=== PATIENT | male | born 1965 | race Caucasian/White ===

== ENCOUNTER → 2017-05-14 | Outpatient (CLI) | payer BC ==
--- NOTE | 2017-05-14 13:07 | EST ---
DATE OF SERVICE: 05/14/2017 TYPE OF REPORT: Regular Stress test, Jacob. INDICATION: Chest pain. BASELINE HEART RATE: 89 BASELINE BLOOD PRESSURE: 141/111 MAXIMUM HEART RATE: 174 MAXIMUM BLOOD PRESSURE: 174/75 85% MPHR: 142 100% MPHR: 167 METS: MAX STAGE REACHED: III TOTAL EXERCISE TIME: 9 minutes Baseline EKG revealed normal sinus rhythm without significant ST-T changes. Patient walked on standard Jacob protocol for a total duration of 9 minutes. Achieved a maximal heart rate of 174 beats per minute, well above 85% of predicted maximal. Developed fatigue, shortness of breath, but did not have any angina or erythema. There were no ST segment changes to indicate ischemia. FINAL IMPRESSION: 1. Fair exercise capacity. 2. Negative stress test by EKG criteria. 3. Patient had atypical chest pain 15 minutes after stopping the stress test. I believe this is insignificant. MTDD
--- NOTE | 2017-05-18 10:56 | ECHOF ---
Referral Reason:Atypical Chest Pain R07.89 MEASUREMENTS -------- HEIGHT: 182.9 cm WEIGHT: 115.7 kg BP: 120/60 RVIDd: 2.8 cm (< 3.3) IVSd: 1.3 cm (0.6 - 1.1) LVIDd: 4.0 cm (3.9 - 5.3) LVPWd: 1.3 cm (0.6 - 1.1) IVSs: 1.6 cm LVIDs: 3.2 cm LVPWs: 1.4 cm LA Diam: 3.4 cm (2.7 - 3.8) Ao Diam: 3.5 cm (2.0 - 3.7) AV Cusp: 2.0 cm (1.5 - 2.6) LA Diam: 4.1 cm (2.7 - 3.8) MV EXCURSION: 15.271 mm (> 18.000) MV EF SLOPE: 90 mm/s (70 - 150) EPSS: 0.2 cm MV E Abhi: 0.38 m/s MV DecT: 250 ms MV A Abhi: 0.55 m/s MV E/A Ratio: 0.68 RAP: 5.00 mmHg RVSP: 21.00 mmHg FINDINGS -------- Sinus rhythm. This was a technically adequate study. There is mild concentric left ventricular hypertrophy. Overall left ventricular systolic function is normal with, an EF between 55 - 60 %. The right ventricle is normal in size. The left atrial size is normal. The right atrial size is normal. The aortic valve is trileaflet, and appears structurally normal. No aortic stenosis or regurgitation. Mild mitral regurgitation is present. Mild tricuspid regurgitation present. There is no evidence of pulmonary hypertension. The right ventricular systolic pressure, as measured by Doppler, is 21.00mmHg. There is no pulmonic regurgitation present. The aortic root size is normal. There is no pericardial effusion. CONCLUSIONS -------- 1. There is mild concentric left ventricular hypertrophy. 2. Overall left ventricular systolic function is normal with, an EF between 55 - 60 %. 3. Mild mitral regurgitation is present. 4. Mild tricuspid regurgitation present. 5. There is no evidence of pulmonary hypertension. 6. The right ventricular systolic pressure, as measured by Doppler, is 21.00mmHg. 7. There is no pericardial effusion. [employer]: Gerda Aldridge RDCS
== END | disposition home or self-care (01) ==
LOC: RADNMMAIN 10:19
PROVIDERS: ATTEND Family Medicine
DX: R07.89 Other chest pain (principal)
CPT/HCPCS: 93017; 93306

== ENCOUNTER 2018-10-14 10:23 | Emergency (ER) | payer BC ==
[2018-10-14 10:30] VITALS: RESP 18
[2018-10-14] MEDS ORDERED: SODIUM CHLORIDE 0.9% 1,000 ML IV STA (11:31)
[2018-10-14] MEDS ORDERED: LORazepam 2 MG/ML INJ IV STA (11:31)
[2018-10-14 11:58] LABS: Partial Thromboplastin Time 25.2 sec (22.0-30.0); Prothrombin Time 10.4 sec (9.0-12.0)
--- NOTE | 2018-10-14 11:59 | ED ---
SOB HPI - General Chief Complaint: Shortness of Breath Stated Complaint: ZENY/near syncope Time Seen by Provider: 10/14/18 10:33 Source: patient, RN notes reviewed, old records reviewed Mode of arrival: ambulatory Limitations: no limitations - History of Present Illness Initial Comments: This is a 53-year-old male the ER for evaluation. Patient was essay for evaluation regarding chest pain shortness of breath, elevated heart rate elevated blood pressure. Patient states he is very stressed out very anxious, did receive some benefit cellulitis of the car on the front is also difficult to drive his car with shortness of breath and chest pain heaviness dizziness without headache. Patient does have A. fib with RVR, otherwise takes no significant medications has no recent medication changes denies drugs or alcohol. Patient states his symptoms seem to be waxing and waning currently MD Complaint: shortness of breath, anxiety -: minutes(s) Radiation: left arm Severity scale (1-10): 3 Quality: sharp Consistency: constant Improves With: nothing Worsens With: other (Thinking about stress) Context: anxiety Associated Symptoms: chest pain - Related Data Home Medications Medication Instructions Recorded Confirmed Sertraline [Zoloft] 50 mg PO DAILY 02/05/14 10/14/18 Alirocumab [Praluent Pen] 75 mg SQ Q14D 10/14/18 10/14/18 Apixaban [Eliquis] 5 mg PO BID 10/14/18 10/14/18 Flecainide [Tambocor] 50 mg PO BID 10/14/18 10/14/18 Levothyroxine Sodium [Synthroid] 125 mcg PO DAILY 10/14/18 10/14/18 Olmesartan Medoxomil 40 mg PO DAILY 10/14/18 10/14/18 Allergies Allergy/AdvReac Type Severity Reaction Status Date / Time No Known Allergies Allergy Verified 10/14/18 10:54 Review of Systems ROS Statement: Those systems with pertinent positive or pertinent negative responses have been documented in the HPI. ROS Other: All systems not noted in ROS Statement are negative. Past Medical History Past Medical History: Atrial Fibrillation, GERD/Reflux, Hyperlipidemia, Hypertension, Osteoarthritis (OA), Sleep Apnea/CPAP/BIPAP, Thyroid Disorder Additional Past Medical History / Comment(s): migraines, History of Any Multi-Drug Resistant Organisms: None Reported Past Surgical History: Adenoidectomy, Heart Catheterization, Hernia Repair, Orthopedic Surgery, Tonsillectomy Additional Past Surgical History / Comment(s): PERIANAL CYST REMOVED WITH COLONOSCOPY. pain clinic procedures, Past Anesthesia/Blood Transfusion Reactions: Motion Sickness, Postoperative Nausea & Vomiting (PONV) Past Psychological History: No Psychological Hx Reported Smoking Status: Never smoker Past Alcohol Use History: None Reported Past Drug Use History: None Reported - Past Family History Father Family Medical History: Coronary Artery Disease (CAD), Myocardial Infarction ([place] ) Additional Family Medical History / Comment(s): FATHER OF LEUKEMIA. Mother Family Medical History: Cancer Additional Family Medical History / Comment(s): thyroid and colon General Exam Limitations: no limitations General appearance: alert, in no apparent distress, anxious Head exam: Present: atraumatic, normocephalic, normal inspection Eye exam: Present: normal appearance, PERRL, EOMI. Absent: scleral icterus, conjunctival injection, periorbital swelling ENT exam: Present: normal exam, mucous membranes moist Neck exam: Present: normal inspection. Absent: tenderness, meningismus, lymphadenopathy Respiratory exam: Present: normal lung sounds bilaterally. Absent: respiratory distress, wheezes, rales, rhonchi, stridor Cardiovascular Exam: Present: regular rate, normal rhythm, normal heart sounds. Absent: systolic murmur, diastolic murmur, rubs, gallop, clicks GI/Abdominal exam: Present: soft, normal bowel sounds. Absent: distended, tenderness, guarding, rebound, rigid Extremities exam: Present: normal inspection, full ROM, normal capillary refill. Absent: tenderness, pedal edema, joint swelling, calf tenderness Back exam: Present: normal inspection Neurological exam: Present: alert, oriented X3, CN II-XII intact Psychiatric exam: Present: normal affect, normal mood Skin exam: Present: warm, dry, intact, normal color. 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 Symptoms appear to be improved x-rays negative labwork is normal, EKG normal. Patient can be discharged home - Lab Data Result diagrams: 10/14/18 10:57 10/14/18 10:57 Lab Results 10/14/18 10/14/18 10/14/18 Range/Units 10:57 10:57 10:57 WBC 5.6 (3.8-10.6) k/uL RBC 5.77 (4.30-5.90) m/uL Hgb 17.4 (13.0-17.5) gm/dL Hct 50.3 (39.0-53.0) % MCV 87.3 (80.0-100.0) fL MCH 30.2 (25.0-35.0) pg MCHC 34.5 (31.0-37.0) g/dL RDW 12.6 (11.5-15.5) % Plt Count 305 (150-450) k/uL Neutrophils % 65 % Lymphocytes % 24 % Monocytes % 6 % Eosinophils % 2 % Basophils % 1 % Neutrophils # 3.6 (1.3-7.7) k/uL Lymphocytes # 1.4 (1.0-4.8) k/uL Monocytes # 0.4 (0-1.0) k/uL Eosinophils # 0.1 (0-0.7) k/uL Basophils # 0.0 (0-0.2) k/uL PT (9.0-12.0) sec INR (<1.2) APTT (22.0-30.0) sec Sodium 139 (137-145) mmol/L Potassium 3.9 (3.5-5.1) mmol/L Chloride 106 (98-107) mmol/L Carbon Dioxide 22 (22-30) mmol/L Anion Gap 11 mmol/L BUN 23 H (9-20) mg/dL Creatinine 0.91 (0.66-1.25) mg/dL Est GFR (CKD-EPI)AfAm >90 (>60 ml/min/1.73 sqM) Est GFR (CKD-EPI)NonAf >90 (>60 ml/min/1.73 sqM) Glucose 108 H (74-99) mg/dL Calcium 9.9 (8.4-10.2) mg/dL Magnesium 2.0 (1.6-2.3) mg/dL Total Bilirubin 0.9 (0.2-1.3) mg/dL AST 33 (17-59) U/L ALT 54 (21-72) U/L Alkaline Phosphatase 64 (38-126) U/L Total Creatine Kinase 82 (55-170) U/L CK-MB (CK-2) 0.9 (0.0-2.4) ng/mL CK-MB (CK-2) Rel Index 1.1 Troponin I <0.012 (0.000-0.034) ng/mL NT-Pro-B Natriuret Pep pg/mL Total Protein 8.0 (6.3-8.2) g/dL Albumin 4.8 (3.5-5.0) g/dL 10/14/18 10/14/18 Range/Units 10:57 10:57 WBC (3.8-10.6) k/uL RBC (4.30-5.90) m/uL Hgb (13.0-17.5) gm/dL Hct (39.0-53.0) % MCV (80.0-100.0) fL MCH (25.0-35.0) pg MCHC (31.0-37.0) g/dL RDW (11.5-15.5) % Plt Count (150-450) k/uL Neutrophils % % Lymphocytes % % Monocytes % % Eosinophils % % Basophils % % Neutrophils # (1.3-7.7) k/uL Lymphocytes # (1.0-4.8) k/uL Monocytes # (0-1.0) k/uL Eosinophils # (0-0.7) k/uL Basophils # (0-0.2) k/uL PT 10.4 (9.0-12.0) sec INR 1.0 (<1.2) APTT 25.2 (22.0-30.0) sec Sodium (137-145) mmol/L Potassium (3.5-5.1) mmol/L Chloride (98-107) mmol/L Carbon Dioxide (22-30) mmol/L Anion Gap mmol/L BUN (9-20) mg/dL Creatinine (0.66-1.25) mg/dL Est GFR (CKD-EPI)AfAm (>60 ml/min/1.73 sqM) Est GFR (CKD-EPI)NonAf (>60 ml/min/1.73 sqM) Glucose (74-99) mg/dL Calcium (8.4-10.2) mg/dL Magnesium (1.6-2.3) mg/dL Total Bilirubin (0.2-1.3) mg/dL AST (17-59) U/L ALT (21-72) U/L Alkaline Phosphatase (38-126) U/L Total Creatine Kinase (55-170) U/L CK-MB (CK-2) (0.0-2.4) ng/mL CK-MB (CK-2) Rel Index Troponin I (0.000-0.034) ng/mL NT-Pro-B Natriuret Pep <11 pg/mL Total Protein (6.3-8.2) g/dL Albumin (3.5-5.0) g/dL - EKG Data -: EKG Interpreted by Me (EKG shows normal sinus rhythm at 77, UT 184, QRS 94, QTC 434) - Radiology Data Radiology results: report reviewed (Chest x-rays negative for acute disease), image reviewed Disposition Clinical Impression: Anxiety, Near syncope Disposition: HOME SELF-CARE Condition: Good Instructions: Anxiety (ED), Near Syncope (ED) Is patient prescribed a controlled substance at d/c from ED?: No Referrals: Rohit Norwood DO [Primary Care Provider] - 1-2 days
[2018-10-14 12:05] LABS: Basophils % (A) 1 %; Eosinophils # (A) 0.1 k/uL (0-0.7); Eosinophils % (A) 2 %; HCT 50.3 % (39.0-53.0); HGB 17.4 gm/dL (13.0-17.5); Lymphocytes # (A) 1.4 k/uL (1.0-4.8); Lymphocytes % (A) 24 %; MCH 30.2 pg (25.0-35.0); MCHC 34.5 g/dL (31.0-37.0); MCV 87.3 fL (80.0-100.0); Mean Platelet Volume 6.7; Monocytes # (A) 0.4 k/uL (0-1.0); Monocytes % (A) 6 %; Neutrophils # (A) 3.6 k/uL (1.3-7.7); Neutrophils % (A) 65 %; Platelet Count 305 k/uL (150-450); RBC 5.77 m/uL (4.30-5.90); RDW 12.6 % (11.5-15.5); WBC 5.6 k/uL (3.8-10.6)
[2018-10-14 12:07] LABS: ALT 54 U/L (21-72); AST 33 U/L (17-59); Albumin 4.8 g/dL (3.5-5.0); Alkaline Phosphatase 64 U/L (38-126); Anion Gap 11 mmol/L; Blood Urea Nitrogen 23 mg/dL (9-20); Calcium 9.9 mg/dL (8.4-10.2); Carbon Dioxide 22 mmol/L (22-30); Chloride 106 mmol/L (98-107); Glucose 108 mg/dL (74-99); Potassium 3.9 mmol/L (3.5-5.1); Sodium 139 mmol/L (137-145); Total Bilirubin 0.9 mg/dL (0.2-1.3)
[2018-10-14 12:11] LABS: Creatine Kinase 82 U/L (55-170)
[2018-10-14 12:23] LABS: Creatine Kinase MB 0.9 ng/mL (0.0-2.4); Troponin I <0.012 ng/mL (0.000-0.034)
--- NOTE | 2018-10-14 12:29 | XR ---
EXAMINATION TYPE: XR chest 2V DATE OF EXAM: 10/14/2018 HISTORY: Shortness of breath. COMPARISON: 06/12/2013 TECHNIQUE: Single view of the chest is submitted. FINDINGS: Demonstrated are scattered senescent parenchymal change. There is no evidence for focal infiltrate. The heart is stable. Hilar and mediastinal structures are within normal limits. Degenerative changes are seen of the dorsal spine. IMPRESSION: 1. Chronic changes without evidence for acute pulmonary disease.
[2018-10-14 13:05] VITALS: PULSE 77
[2018-10-14 13:50] VITALS: BP 139/93; TEMP 98.6
== END 2018-10-14 13:50 | disposition home or self-care (01) ==
LOC: EC 10:23
DX: R55 Syncope and collapse (principal); F41.9 Anxiety disorder, unspecified; R06.02 Shortness of breath; R07.89 Other chest pain; R42 Dizziness and giddiness; I48.91 Unspecified atrial fibrillation; E78.5 Hyperlipidemia, unspecified; I10 Essential (primary) hypertension; M19.90 Unspecified osteoarthritis, unspecified site; E07.9 Disorder of thyroid, unspecified; G47.30 Sleep apnea, unspecified; Z99.89 Dependence on other enabling machines and devices; Z79.01 Long term (current) use of anticoagulants; Z79.899 Other long term (current) drug therapy; Z95.818 Presence of other cardiac implants and grafts; Z82.49 Family history of ischemic heart disease and other diseases of the circulatory system
CPT/HCPCS: 36415; 93005; 83880; 80053; 82550; 82553; 83735; 84484; 85025; 85610; 85730; 71046; 99285; 96374; 96361 ×2; J2060

== ENCOUNTER 2020-04-10 08:44 | Day surgery (SDC) | payer BC ==
[2020-04-08 15:08] VITALS: BMI 33.6
[~2020-04-10 08:44] MED LIST: LACTATED RINGERS 1,000 ML IV SCH; LIDOCAINE 1% (10MG/ML) FOR IV START INTRADERMA PRN
[2020-04-10] MEDS ORDERED: ONDANSETRON 4 MG/2 ML VIAL ONE (08:57)
[2020-04-10 09:04] VITALS: RESP 16; TEMP 97.6
[2020-04-10] MEDS ORDERED: PROPOFOL 10 MG/ML 20 ML VIAL IV ONE (09:36)
--- NOTE | 2020-04-10 09:49 | P.PCN ---
Date of Procedure: 04/10/20 Procedure(s) Performed: BRIEF HISTORY: Patient is a 54-year-old pleasant male scheduled for an elective colonoscopy as a part of screening for colorectal neoplasia. Mother was diagnosed with colon cancer at age 60. OCEDURE PERFORMED: Colonoscopy. PREOPERATIVE DIAGNOSIS: Screening for colon cancer/family history of colon cancer. IV sedation per Anesthesia. PROCEDURE: After informed consent was obtained, the patient, was brought into the endoscopy unit. IV sedation was administered by Anesthesia under continuous monitoring. Digital rectal examination was normal. Initially the Olympus CF-160 flexible video colonoscope was then inserted in the rectum, gradually advanced into the cecum without any difficulty. Careful examination was performed as the scope was gradually being withdrawn. Ileocecal valve and the appendiceal orifice were visualized and appeared normal. Prep was excellent. Mucosa of the cecum, ascending colon, transverse colon, descending colon, sigmoid colon, and rectum appeared normal. Retroflexion was performed in the rectum and no lesions were seen. The patient tolerated the procedure well. IMPRESSION: Normal-appearing colon from rectum to cecum no evidence of colorectal neoplasia . RECOMMENDATIONS: Findings of this examination were discussed with the patient as well as a family. He was advised to have a repeat screening colonoscopy in 5 years.
[2020-04-10 09:56] VITALS: PULSE 69
[2020-04-10 10:09] VITALS: BP 115/70
== END 2020-04-10 10:22 | disposition home or self-care (01) ==
LOC: ORWHC2ENDO 08:44
PROVIDERS: ATTEND Internal Medicine Gastroenterology
DX: Z12.11 Encounter for screening for malignant neoplasm of colon (principal); Z80.0 Family history of malignant neoplasm of digestive organs; I10 Essential (primary) hypertension; I48.91 Unspecified atrial fibrillation; E78.5 Hyperlipidemia, unspecified; G47.33 Obstructive sleep apnea (adult) (pediatric); E07.9 Disorder of thyroid, unspecified; K21.9 Gastro-esophageal reflux disease without esophagitis; Z79.890 Hormone replacement therapy; Z79.899 Other long term (current) drug therapy; Z79.01 Long term (current) use of anticoagulants; Z98.890 Other specified postprocedural states; Z90.89 Acquired absence of other organs
CPT/HCPCS: J2405; J2704; G0105

== ENCOUNTER → 2020-04-15 | Outpatient (CLI) | payer BC ==
[2020-04-15 08:07] LABS: HCT 46.1 % (39.0-53.0); HGB 15.7 gm/dL (13.0-17.5); MCH 30.4 pg (25.0-35.0); MCHC 34.1 g/dL (31.0-37.0); MCV 89.2 fL (80.0-100.0); Mean Platelet Volume 6.8; Platelet Count 292 k/uL (150-450); RBC 5.17 m/uL (4.30-5.90); RDW 12.4 % (11.5-15.5); WBC 5.3 k/uL (3.8-10.6)
[2020-04-15 16:50] LABS: African American GFR (CKD) 97.1 (60.0-200.0); Anion Gap 7.1 mmol/L (4.00-12.00); Carbon Dioxide 27.9 mmol/L (21.6-31.8); Non-African American GFR(CKD) 83.8 (60.0-200.0); Potassium 4.4 mmol/L (3.5-5.5)
== END | disposition home or self-care (01) ==
LOC: LABWHC1 07:32
PROVIDERS: ATTEND Internal Medicine Interventional Cardiology
DX: Z01.818 Encounter for other preprocedural examination (principal); R07.9 Chest pain, unspecified
CPT/HCPCS: 36415; 80051; 82565; 84520; 85027

== ENCOUNTER → 2020-12-27 | Outpatient (CLI) | payer BC ==
--- NOTE | 2020-12-27 11:01 | CT ---
EXAMINATION TYPE: CT soft tissue neck w con DATE OF EXAM: 12/27/2020 COMPARISON: None HISTORY: base of tongue lesions CT DLP: 769.5 mGycm CONTRAST: Patient injected with 100 mL of Isovue 300. TECHNIQUE: Axial images at 3 mm thick sections. Reconstructed images in the coronal plane and sagitt al plane are reviewed. FINDINGS: Limited CT sections are obtained the lung apices. The lung apices appear clear. CT neck: The torus tubarius and fossa of Rosenmuller are normal. Marshmallow Maker spaces are normal. Para nasal sinuses and mastoid air cells are clear. Parotid glands appear normal and symmetrical. Submandibular glands, are normal. Parapharyngeal spac es are normal. No suspicious adenopathy is evident. The hypopharynx appears within normal limits. Vallecula appears clear. Epiglottis is unremarkable. Vocal cord level appear symmetrical. Thyroid as visualized is normal. Spondylosis is within the thoracic spine. Prevertebral space is normal. Mild degenerative disc change s present C5-6. Sella is unremarkable. IMPRESSIONS: 1. 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 2. No suspicious changes to suggest metastatic disease.
== END | disposition home or self-care (01) ==
LOC: RADCTMAIN 09:18
PROVIDERS: ATTEND Otolaryngology
DX: C01 Malignant neoplasm of base of tongue (principal)
CPT/HCPCS: 70491; Q9967

== ENCOUNTER → 2022-02-02 | Outpatient (CLI) | payer BC ==
--- NOTE | 2022-02-02 09:37 | MR ---
EXAMINATION TYPE: MR lumbar wo con DATE OF EXAM: 02/02/2022 COMPARISON: NONE HISTORY: Cervical and lumbar radiculopathy, pain and discomfort TECHNIQUE: T1 and T2 axial and sagittal images of the lumbar spine are submitted. FINDINGS: There is no abnormal signal seen within the visualized spinal cord or paraspinal soft tissu es. Bilateral simple renal cyst. At L1-2 there is no disc herniation or canal stenosis. No foraminal encroachment. At L2-3 there is no disc herniation or canal stenosis. No foraminal encroachment. At L3-4 there is no disc herniation or canal stenosis. Mild hypertrophy of the facet joints. There is circumferential disc bulging. Mild bilateral foraminal encroachment. At L4-5 there is degenerative disc disease with broad-based disc bulging and facet arthropathy. Mild bilateral foraminal encroachment. Vertebral body hemangioma of L4. Borderline canal stenosis. At L5-S1 there is degenerative disc disease with facet arthropathy. Broad-based disc bulging. Mild le ft and moderate right foraminal encroachment secondary to greater hypertrophic changes and disc bulgi ng laterally to the right. IMPRESSION: 1. Multilevel degenerative disc disease with disc bulging L4-5 and facet arthropathy result in border line canal stenosis and mild bilateral foraminal encroachment. 2. Degenerative disc disease with disc bulging greater laterally to the right L5-S1 resulting in mild left and moderate right foraminal encroachment. EXAMINATION TYPE: MR cervical wo con DATE OF EXAM: 02/02/2022 COMPARISON: NONE HISTORY: Cervical and lumbar radiculopathy, pain and discomfort TECHNIQUE: T1 sagittal and coronal, T2 sagittal, and gradient echo axial views of the cervical spine are submitted. FINDINGS: The cranial cervical junction is preserved. There is no abnormal signal seen within the sp inal cord or paraspinal soft tissues. At C2-3 there is no disc herniation or canal stenosis. Very mild bilateral uncovertebral joint hypert rophy. No foraminal encroachment. At C3-4 there is disc desiccation with facet arthropathy and mild uncovertebral joint hypertrophy. Mi ld right foraminal encroachment. No disc herniation or canal stenosis. At C4-5 there is degenerative disc disease with disc desiccation and facet arthropathy. Mild uncovert ebral joint hypertrophy. No disc herniation or canal stenosis. At C5-6 there is degenerative disc disease with broad-based disc protrusion or herniation capped by s pur encroaching upon the anterior margin the spinal cord. No displacement. Uncovertebral joint hypert rophy and facet arthropathy are noted with mild bilateral foraminal encroachment. There is mild centr al stenosis. At C6-7 there is disc desiccation but no evidence of disc herniation, canal stenosis or foraminal enc roachment. At C7-T1 there is no disc herniation or canal stenosis. No foraminal encroachment. IMPRESSION: 1. Multilevel mild degenerative disc disease. There is a broad-based disc protrusion or herniation C 5-C6 with mild canal stenosis and bilateral foraminal encroachment. There 2. There is a mild right foraminal encroachment C3-C4 secondary to right-sided uncovertebral joint hy pertrophy.
== END | disposition home or self-care (01) ==
LOC: RADMRIMAIN 08:01
PROVIDERS: ATTEND Family Medicine
DX: M51.17 Intervertebral disc disorders with radiculopathy, lumbosacral region (principal); M48.061 Spinal stenosis, lumbar region without neurogenic claudication; M50.122 Cervical disc disorder at C5-C6 level with radiculopathy; M48.02 Spinal stenosis, cervical region; M47.22 Other spondylosis with radiculopathy, cervical region; M47.26 Other spondylosis with radiculopathy, lumbar region
CPT/HCPCS: 72141; 72148

== ENCOUNTER → 2022-04-03 | Outpatient (CLI) | payer BC ==
--- NOTE | 2022-04-03 13:12 | CT ---
CT cervical spine without contrast. HISTORY: Neck pain and upper extremity radiculopathy. COMPARISON: None. TECHNIQUE: Multiple axial images are obtained from skull base to the upper thoracic spine without use of IV contrast material. FINDINGS: Craniovertebral junction relationships and prevertebral soft tissues are normal. There is loss of normal cervical lordosis. The cervical vertebral segments are normal in height and alignment and there is no fracture or sublux ation. There is mild degenerative disc disease at the C4-5 level where there is mild spondylosis. There is m oderate degenerative disease at the C5-6 level where there is moderate spondylosis and mild disc spac e narrowing. There is no cervical disc herniation. The bony cervical canal is widely patent and there is no cyst significant stenosis. There is mild degeneration of the uncovertebral joints at C5-6 level. There is mild bony neural foraminal encroachment at the C5-6 level bilaterally. The paraspinal soft tissues are unremarkable. IMPRESSION: 1. No cervical spine fracture or malalignment. 2. Mild to moderate degenerative changes at the C5-6 level. 3. No bony cervical canal stenosis or cervical disc herniation.
== END | disposition home or self-care (01) ==
LOC: RADCTMAIN 10:00
PROVIDERS: ATTEND Orthopaedic Surgery
DX: M47.22 Other spondylosis with radiculopathy, cervical region (principal)
CPT/HCPCS: 72125

== ENCOUNTER → 2022-06-11 | Outpatient (CLI) | payer BC ==
[2022-06-11 09:41] VITALS: BP 130/88; PULSE 68; RESP 18
--- NOTE | 2022-06-11 13:33 | P.PAINPG ---
PQRS Measure Charge Sheet Comment: HISTORY OF PRESENT ILLNESS: 56 yr old male as a referral from Dr Olvera presents today w severe and chronic neck pain secondary to DDD, spondylosis and facet arthropathy without myelopathy for evaluation. Patient states that his pain level is currently at 4/10 in intensity, constant, localized in the lower aspect of the lumbar spine for the last 7 months with occasional tingling through the left upper extremity. Pain escalates as high as 8 out of 10 in intensity with hyperextension and lifting. Is relieved with medications (Motrin), ice, physical therapy in November 2021 which provoked pain, chiropractic treatments in the past which provoked pain, daily home stretching regimen, massage therapy integrated with PT, repositioning and rest. PMH: Atrial Fibrillation, GERD, Hyperlipidemia, HTN, OA, Sleep Apnea, Thyroid Disorder PSH: Adenoidectomy, Heart Catheterization, Hernia Repair, Orthopedic Surgery, Tonsillectomy, Colonoscopy (2014, 2019), LESIs (2013) SH: Negative x 3 FH: Fa- CAD/ GA/ Leukemia. Mo- Thyroid CA/ Colon CA. All: See list Meds: See list REVIEW OF ORGAN SYSTEMS: CONSTITUTIONAL: No fevers or chills. No recent weight loss. NEUROLOGICAL: + numbness and tingling along the distal extremities. No seizure disorders or headaches. MUSCULOSKELETAL: + pain PSYCHIATRIC: Denies current depression or suicidal thoughts. Physical Examinations : Constitutional : Cooperative , not in acute distress . Neurologic : Cranial nerve II to XII intact. No focal neurological deficits. Psychiatric : alert & oriented x 3. Matching mood & appropriate affect. Judgment & insight intact. Musculoskeletal : Cervical Spine Motor strength in the deltoid and biceps: Normal right side. Normal Left side Motor strength biceps and the wrist extensors: Normal right side . Normal left side Motor strength in the triceps muscle: Normal right side. Normal left side Deep tendon reflexes: Normal at the biceps. Normal at Brachioradialis. Normal at triceps Vertebral body tenderness to deep palpation over C6 Cervical facet loading test: positive bilaterally Spurling test: positive bilaterally Neck distraction test: positive bilaterally Kieran sign: positive bilaterally Lumbar spine Motor strength lower extremities ,thigh and legs 5/5 Right side , 5/5 Left side Deep tendon reflexes : Normal Knee Jerk. Normal Ankle Jerk Vertebral body tenderness over Lumbar facet Loading Test: positive Right / positive Left Range of motion of the lumbar spine Flexion 30 degrees, extension 10 degrees Straight Leg Raise test: Left/ Right positive at degree Bryon test: positive right / positive left. Severe tenderness over the Sacroiliac joint on the Right / Left sides Gaenslen test: positive bilaterally Seated flexion test: positive bilaterally. Sacral spine : Severe tenderness over the Sacroiliac joint: right side / left side Range of motion: Flexion of the lumbar spine <60 degrees Range of motion: Extension of the lumbar spine <20 degrees Gaenslen's Test positive Errol's Test positive Bryon test: positive right side / left side Thigh Thrust Test Sacral Thrust Test Imaging: MRI without contrast of the cervical spine from 02/02/22 reviewed Computed tomography scan without contrast of the cervical spine from 04/03/22 reviewed Assessment/ Plan : Cervical disc bulge, cervical DDD, cervical spondylosis Recommendation of ANOOP C6 to C7. May need a series of injections, up to 3 within a six-month timeframe, for optimal pain relief. Risks, benefits of procedure discussed and patient verbalized understanding. Admits to aspirin or anti- coagulant use or medical history of diabetes. Protocol for discontinuation/ continuation of medications jen procedure discussed. We will receive medical clearance letter from patient's turbinated bone grinder, Dr. De La Paz. All questions answered. I have spent greater than 30 minutes on patient care today. Dr Garibay was available by phone for the evaluation of this patient. The time was used to review the medical records including relevant urine studies and Prescription history (MAPs), review of the available imaging, evaluation and examination of the patient, coordination of care with the medical staff and if applicable referring physicians, as well as creation of the medical record PQRS Narrative: Smoking Status Never smoker Home Medications: Ambulatory Orders Sertraline [Zoloft] 50 mg PO DAILY 02/05/14 Apixaban [Eliquis] 5 mg PO BID 10/14/18 Flecainide [Tambocor] 50 mg PO BID 10/14/18 Levothyroxine Sodium [Synthroid] 175 mcg PO DAILY 10/14/18 Olmesartan Medoxomil 40 mg PO DAILY 10/14/18 Fenofibrate Nanocrystallized [Tricor] 145 mg PO DAILY 04/08/20 Controlled Substance Measures - Controlled Substance Measures Is patient prescribed a controlled substance at discharge?: No
== END ==
LOC: PNWHC3 08:39
PROVIDERS: ATTEND Specialist
DX: M50.30 Other cervical disc degeneration, unspecified cervical region (principal); M47.812 Spondylosis without myelopathy or radiculopathy, cervical region; I48.91 Unspecified atrial fibrillation; I10 Essential (primary) hypertension; M19.90 Unspecified osteoarthritis, unspecified site; E78.5 Hyperlipidemia, unspecified; Z91.041 Radiographic dye allergy status
CPT/HCPCS: 99211

== ENCOUNTER 2022-07-16 08:29 | Day surgery (SDC) | payer BC ==
[2022-07-15 09:42] VITALS: BMI 33.9
[~2022-07-16 08:29] MED LIST changes: -LIDOCAINE 1% (10MG/ML) FOR IV START INTRADERMA PRN
[2022-07-16] MEDS ORDERED: LACTATED RINGERS 1,000 ML IV ONE ×2 (08:50)
[2022-07-16 08:57] VITALS: RESP 16; TEMP 97
[2022-07-16] MEDS ORDERED: fentaNYL (PF) 50 MCG/ML 2 ML AMP ONE (09:32)
[2022-07-16] MEDS ORDERED: IOPAMIDOL M200 10 ML VIAL ONE (09:32)
[2022-07-16] MEDS ORDERED: DEXAMETHASONE SOD PHOSPHATE 10 MG/ML 1 ML VIAL ONE (09:32)
[2022-07-16] MEDS ORDERED: MIDAZOLAM 2 MG/2 ML VIAL ONE (09:32)
--- NOTE | 2022-07-16 09:50 | P.PCN ---
Date of Procedure: 07/16/22 Description of Procedure: Pre- and Post-operative Diagnosis: Cervical radiculopathy Procedure: C6-C7 Inter-Laminar Cervical Epidural Steroid Injection under biplanar fluoroscopy Surgeon: Hong Hernandez Anesthesia: Local: 1% Lidocaine, IV sedation : Versed 2 mg, and fentanyl 100 g. Sedation supervision start time : 935 sedation Supervision end time: 945 Complications: None. Estimated blood loss: None Specimens removed: None Fluoroscopic image: saved to electronic medical records. Indications for Procedure: The patient has been suffering from neck pain and pain radiating to the upper extremity . Inadequate pain control with pharmacologic regimen. An inter-laminar approach cervical epidural steroid injection was scheduled for the patient. Procedure and Findings: The patient was seen and examined in the holding area. The written informed consent was obtained after explaining the risks, benefits, alternatives of the procedure to the patient. The patient was brought to the procedure room and was placed in the prone position on the operating table. A pillow was placed under the upper chest. Standard anesthesia monitoring was done through out the procedure. Timeout was completed. The skin preparation was done with ChloraPrep 1 and draping was done in usual sterile fashion. Sterile technique was observed throughout the procedure. Under fluoroscopic guidance, the C6-C7 inter-laminar space was identified. 3 ml of 1% Lidocaine was injected with a 25 gauge needle to achieve adequate local anesthesia of the skin and subcutaneous tissue. A 20 gauge, 3.5 inch Tuohy type epidural needle was placed and gradually advanced up to the epidural space using loss of resistance technique and fluoroscopic guidance. Lateral, oblique fluoroscopic views confirm the needle position. No paresthesia was noted. A negative aspiration was confirmed and then 1 ml of Isovue-200 was injected. A good dye spread was seen in the epidural space and it was negative for any intrathecal, intraneural or intravascular spread. A total of 6 ml solution containing 20 mg Dexamethasone, and 4 ml preservative-free Normal Saline was injected slowly with intermittent aspiration. The needle was removed intact, area was cleaned and bandage was applied. Disposition : The patient tolerated the procedure very well. The patient was transferred to the recovery room and remained stable until discharged home. The patient was given detailed discharge instructions for bleeding, infection, increased pain at the injection site, and was advised to seek immediate medical attention should significant side effects develop. The patient will be followed up with our Pain Clinic within 4 weeks for follow-up visit. Note: As per patient he is not true ALLERGIC to iodine contrast. Per patient he is ALLERGIC to shrimp long time ago
[2022-07-16] MEDS ORDERED: IV FLUID CONTINUATION 1,000 ML IV ONE ×2 (09:54)
--- NOTE | 2022-07-16 10:07 | FL ---
Fluoroscopy HISTORY: Pain 6 seconds fluoroscopy time supplied to the referring clinician. 3 intraoperative C-arm images docume nt the procedure. See dictated report from anesthesia.
[2022-07-16 10:10] VITALS: BP 114/74; PULSE 68
== END 2022-07-16 10:30 | disposition home or self-care (01) ==
LOC: ORPAIN 08:29
DX: M54.12 Radiculopathy, cervical region (principal); I10 Essential (primary) hypertension; I48.91 Unspecified atrial fibrillation; G47.33 Obstructive sleep apnea (adult) (pediatric); Z91.041 Radiographic dye allergy status; Z98.890 Other specified postprocedural states
CPT/HCPCS: 62321; 99152; J2250; J1100; J3010; Q9966

== ENCOUNTER → 2022-08-19 | Outpatient (CLI) | payer BC ==
[2022-08-19 08:08] VITALS: BP 124/83; PULSE 69; RESP 18; TEMP 98.2
--- NOTE | 2022-08-19 08:13 | P.PN ---
Subjective Progress Note Date: 08/19/22 This is a follow-up visit for this 57 years old male with a chronic history of severe neck pain, he is diagnosed with cervical radiculopathy, cervical degenerative disc disease and cervical spondylosis with cervical facet arthropathy, recently we have done cervical epidural steroid injection x1 , patient reported that he had improvement in his pain level after the injection, patient used to have severe neck pain with radiation to the upper extremity with some numbness and tingling sensation, he reported currently he had some neck pain mainly, neck pain increases with any activities especially flexing the neck, patient done physical therapy recently Objective - Exam Physical Examinations : -Constitutiona : Cooperative , not in acute distress . -HEENT : nech : supple , no Lymphadenopathy , normal thyroid size . : eyes : no ptosis , no icterus, no photophobia . - neurologic : Cranial nerve II to XII intact , no focal neurological deffecit . -psychatric : alert , oriented X 3 , appropriate affect , intact judgment and insight . -Lymphatic : no Lymphadenopathy . - musculoskeltal : Cervical Spine motor stregnth in the deltoid and biceps, normal right side , normal Left side motor stregnth biceps and the wrist extensors normal right side ,normal left side . motor stregnth in the triceps muscle . normal Right side , normal Left side deep tendon reflexes normal at the biceps , normal at Brachioradialis , normal at triceps. cervical facet loading test: Positive Bilaterally Spurling test= positive Right , positive left. Neck distraction test= positive Right , positive left. Kieran sign= positive right, positive left . Lumber spine moter stegnth lower extremities ,thigh and legs 5/5 Right side , 5/5 Left side Assessment and Plan Plan: Assessment and plan= 1-Cervical radiculopathy. 2- cervical degenerative disc disease . 3-cervical spondylosis with lumbar facet arthropathy . he could benefit from cervical epidural steroid injection at C6 7 Patient use Eliquis and we have to hold on liquids for 72 hours before the procedure Time with Patient: Less than 30
== END | disposition home or self-care (01) ==
LOC: PNWHC3 07:32
PROVIDERS: ATTEND Specialist
DX: M47.22 Other spondylosis with radiculopathy, cervical region (principal); M50.30 Other cervical disc degeneration, unspecified cervical region; M47.892 Other spondylosis, cervical region; M46.96 Unspecified inflammatory spondylopathy, lumbar region
CPT/HCPCS: 99211

== ENCOUNTER 2022-10-01 07:47 | Day surgery (SDC) | payer BC ==
[2022-10-01 07:59] VITALS: RESP 16; TEMP 97.3
[2022-10-01] MEDS ORDERED: LACTATED RINGERS 1,000 ML IV ONE (08:00)
[2022-10-01] MEDS ORDERED: fentaNYL (PF) 50 MCG/ML 2 ML AMP ONE (08:22)
[2022-10-01] MEDS ORDERED: IOPAMIDOL M200 10 ML VIAL ONE (08:22)
[2022-10-01] MEDS ORDERED: MIDAZOLAM 2 MG/2 ML VIAL ONE (08:22)
[2022-10-01] MEDS ORDERED: DEXAMETHASONE SOD PHOSPHATE 10 MG/ML 1 ML VIAL ONE (08:22)
[2022-10-01] MEDS ORDERED: IV FLUID CONTINUATION 600 ML IV ONE (08:45)
--- NOTE | 2022-10-01 08:45 | P.PCN ---
Date of Procedure: 10/01/22 Description of Procedure: Pre- and Post-operative Diagnosis: Cervical radiculopathy Procedure: C6-C7 Inter-Laminar Cervical Epidural Steroid Injection under biplanar fluoroscopy Surgeon: Hong Hernandez Anesthesia: Local: 1% Lidocaine, IV sedation : Versed 2 mg, and fentanyl 100 g. Sedation supervision start time : 0 826 sedation Supervision end time: 0 841 Anticoagulants: Last dose of last dose of Eliquis on 09/28/2022. Complications: None. Estimated blood loss: None Specimens removed: None Fluoroscopic image: saved to electronic medical records. Indications for Procedure: The patient has been suffering from neck pain and pain radiating to the upper extremity . Inadequate pain control with pharmacologic regimen. An inter-laminar approach cervical epidural steroid injection was scheduled for the patient. Procedure and Findings: The patient was seen and examined in the holding area. The written informed consent was obtained after explaining the risks, benefits, alternatives of the procedure to the patient. The patient was brought to the procedure room and was placed in the prone position on the operating table. A pillow was placed under the upper chest. Standard anesthesia monitoring was done through out the procedure. Timeout was completed. The skin preparation was done with ChloraPrep 1 and draping was done in usual sterile fashion. Sterile technique was observed throughout the procedure. Under fluoroscopic guidance, the C6-C7 inter-laminar space was identified. 3 ml of 1% Lidocaine was injected with a 25 gauge needle to achieve adequate local anesthesia of the skin and subcutaneous tissue. A 20 gauge, 3.5 inch Tuohy type epidural needle was placed and gradually advanced up to the epidural space using loss of resistance technique and fluoroscopic guidance. Lateral, oblique fluoros copic views confirm the needle position. No paresthesia was noted. A negative aspiration was confirmed and then 1 ml of Isovue-200 was injected. A good dye spread was seen in the epidural space and it was negative for any intrathecal, intraneural or intravascular spread. A total of 5 ml solution containing 20 mg Dexamethasone, and 3 ml preservative-free Normal Saline was injected slowly with intermittent aspiration. The needle was removed intact, area was cleaned and bandage was applied. Disposition : The patient tolerated the procedure very well. The patient was transferred to the recovery room and remained stable until discharged home. The patient was given detailed discharge instructions for bleeding, infection, increased pain at the injection site, and was advised to seek immediate medical attention should significant side effects develop. The patient will be followed up with our Pain Clinic within 4 weeks for follow-up visit.
[2022-10-01 09:09] VITALS: BP 113/76; PULSE 73
--- NOTE | 2022-10-01 09:09 | FL ---
Intraoperative/procedural fluoroscopic services were provided for cervical epidural steroid injection . Total fluoroscopy time is 10 seconds with a total of 3 submitted images to PACS. Please see the ope rative note for further details.
== END 2022-10-01 09:17 | disposition home or self-care (01) ==
LOC: ORPAIN 07:47
DX: M54.12 Radiculopathy, cervical region (principal); F10.90 Alcohol use, unspecified, uncomplicated; I48.91 Unspecified atrial fibrillation; I10 Essential (primary) hypertension; E03.9 Hypothyroidism, unspecified; E78.5 Hyperlipidemia, unspecified; Z79.890 Hormone replacement therapy; Z79.01 Long term (current) use of anticoagulants; Z79.899 Other long term (current) drug therapy; Z98.890 Other specified postprocedural states
CPT/HCPCS: 99152; 62321; J2250; J1100; J3010; Q9966

== ENCOUNTER → 2022-10-15 | Outpatient (CLI) | payer MEDICARE, BC ==
[2022-10-15 08:42] VITALS: BP 137/82; PULSE 70; RESP 18; TEMP 98.2
--- NOTE | 2022-10-15 14:16 | P.PAINPG ---
PQRS Measure Charge Sheet Comment: A 57 yr old male with a history of severe and chronic neck pain secondary to cervical DDD and spondylosis with facet arthropathy without myelopathy presents today for evaluation s/p ANOOP C6-C7. Pt states he experienced 80% pain relief x 2 wks s/p procedure. Pain level is provoked at 2 /10 in intensity, constant, localized in the lower cervical spine, stiff in character without radiation of pain. Pain is provoked by rotation, over head reaching. Pain is alleviated with medications, injections, ice, PT in May 2022 for 6 weeks no physician advised him not to return detention through, chiropractic treatments monthly, sitting and rest. Interventional pain procedures completed include ANOOP C6-C7 Patient is currently on Motrin Patient denies any side effects of the medication(s), denies excessive drowsiness or sleepiness, denies suicidal ideation and reports that the current pain medication is helping to control the pain and improve activities of daily living. Patient denies any motor or sensory deficits. Patient denies any fever or night sweats, denies any change in the bowel movements or urination. Physical Examination: -Constitutional: Cooperative. Not in acute distress . - Neurologic: Cranial nerve II to XII intact. No focal neurological deficits. - Psychatric: Alert & oriented x 3. Matching mood & appropriate affect. Judgment and insight intact. - Musculoskeletal: Cervical spine: Muscle bulk/ tone/ strength in the bilateral upper extremities normal Vertebral body tenderness to palpation over Spurling test positive Distraction test positive Facet loading test positive Thoracic spine Muscle bulk / tone/ strength in the bilateral paraspinal muscles normal Vertebral body tender to palpation over Facet loading test positive Lumbar spine: Motor bulk/ tone/ strength lower extremities , thigh and legs : 5/5 Deep tendon reflexes : Normal Knee Jerk. Normal Ankle Jerk . Vertebral body tenderness to palpation over Lumbar Facet Loading Test positive Straight Leg Raise: positive at 30 degrees right side/ left side Gaenslen's Test positive Sacral spine : Severe tenderness over the Sacroiliac joint: right side / left side Range of motion: Flexion of the lumbar spine <60 degrees Range of motion: Extension of the lumbar spine <20 degrees Gaenslen's Test positive Bryon test: positive right side / left side Thigh Thrust Test Sacral Thrust Test Assessment and plan: Chronic neck pain secondary to cervical DDD, spondylosis with facet arthropathy without myelopathy Pt exhibited sufficient and substantial pain relief s/p procedure. He will manage residual pain at home and may return to clinic as needed. All patient questions answered I have spent less than 30 minutes on patient care today. Dr Garibay was available by phone for the evaluation of this patient. The time was used to review the medical records including relevant urine studies and Prescription history (MAPs), review of the available imaging, evaluation and examination of the patient, coordination of care with the medical staff and if applicable referring physicians, as well as creation of the medical record - Pain Location Neck Non-Pharmacological Interventions: Chiropractic Treatment, Ice, Inactivity, Physical Therapy, Sitting Pharmacological Interventions: Epidural, PRN Medication PQRS Narrative: Smoking Status Never smoker Hx Alcohol Use (MH) Yes: OCCASIONAL Home Medications: Ambulatory Orders Sertraline [Zoloft] 50 mg PO DAILY 02/05/14 Apixaban [Eliquis] 5 mg PO BID 10/14/18 Flecainide [Tambocor] 50 mg PO BID 10/14/18 Levothyroxine Sodium [Synthroid] 188 mcg PO DAILY 10/14/18 Olmesartan Medoxomil 40 mg PO DAILY 10/14/18 Fenofibrate Nanocrystallized [Tricor] 145 mg PO DAILY 04/08/20 Controlled Substance Measures - Controlled Substance Measures Is patient prescribed a controlled substance at discharge?: No
== END ==
LOC: PNWHC3 08:12
PROVIDERS: ATTEND Specialist
DX: M47.812 Spondylosis without myelopathy or radiculopathy, cervical region (principal); M50.30 Other cervical disc degeneration, unspecified cervical region; G89.29 Other chronic pain
CPT/HCPCS: 99211

== ENCOUNTER → 2023-08-18 | Outpatient (CLI) | payer MEDICARE, BC ==
[2023-08-18 09:24] VITALS: BP 122/72; PULSE 89; RESP 15; TEMP 98.4
--- NOTE | 2023-08-18 14:45 | P.PAINPG ---
PQRS Measure Charge Sheet Comment: A 57 yr old male with a history of severe and chronic neck pain x 1 yr secondary to cervical DDD and spondylosis with facet arthropathy without myelopathy presents today for evaluation. Pain level is provoked at 6/10 in intensity, constant, localized in the lower cervical spine, predominantly axial, stiff in character without radiation of pain. Pain is provoked by rotation, over head reaching. Pain is alleviated with medications, injections, ice, PT in May 2022 for 6 weeks no physician advised him not to return fpc through, chiropractic treatments monthly for his cervical and lumbar spine since age 10, sitting and rest. Cervical disability score of 26. Interventional pain procedures completed include ANOOP C6-C7 x1 Patient is currently on Ibu Patient denies any side effects of the medication(s), denies excessive drowsiness or sleepiness, denies suicidal ideation and reports that the current pain medication is helping to control the pain and improve activities of daily living. Patient denies any motor or sensory deficits. Patient denies any fever or night sweats, denies any change in the bowel movements or urination. Physical Examination: -Constitutional: Cooperative. Not in acute distress . - Neurologic: Cranial nerve II to XII intact. No focal neurological deficits. - Psychatric: Alert & oriented x 3. Matching mood & appropriate affect. Judgment and insight intact. - Musculoskeletal: Cervical spine: Muscle bulk/ tone/ strength in the bilateral upper extremities normal Vertebral body tenderness to palpation over C6 Spurling test positive Distraction test positive BL C6-C7 Facet loading test positive Thoracic spine Muscle bulk / tone/ strength in the bilateral paraspinal muscles normal Vertebral body tender to palpation over Facet loading test positive Lumbar spine: Motor bulk/ tone/ strength lower extremities , thigh and legs : 5/5 Deep tendon reflexes : Normal Knee Jerk. Normal Ankle Jerk . Vertebral body tenderness to palpation over Lumbar Facet Loading Test positive Straight Leg Raise: positive at 30 degrees right side/ left side Gaenslen's Test positive Sacral spine : Severe tenderness over the Sacroiliac joint: right side / left side Range of motion: Flexion of the lumbar spine <60 degrees Range of motion: Extension of the lumbar spine <20 degrees Gaenslen's Test positive Bryon test: positive right side / left side Thigh Thrust Test Sacral Thrust Test Assessment and plan: Chronic neck pain secondary to cervical DDD, spondylosis with facet arthropathy without myelopathy Recommendation of ANOOP C6-C7 #2. May need a series of injections for optimal pain relief. Risks, benefits of procedure discussed and pt verbalized understanding. Protocol for discontinuation/ continuation of medications jen procedure discussed. All patient questions answered I have spent less than 30 minutes on patient care today. Dr Garibay was available by phone for the evaluation of this patient. The time was used to review the medical records including relevant urine studies and Prescription history (MAPs), review of the available imaging, evaluation and examination of the patient, coordination of care with the medical staff and if applicable referring physicians, as well as creation of the medical record PQRS Narrative: Smoking Status Never smoker Hx Alcohol Use (MH) Yes: OCCASIONAL Home Medications: Ambulatory Orders Sertraline [Zoloft] 50 mg PO DAILY 02/05/14 Apixaban [Eliquis] 5 mg PO BID 10/14/18 Flecainide [Tambocor] 50 mg PO BID 10/14/18 Levothyroxine Sodium [Synthroid] 188 mcg PO DAILY 10/14/18 Olmesartan Medoxomil 40 mg PO DAILY 10/14/18 Fenofibrate Nanocrystallized [Tricor] 145 mg PO DAILY 04/08/20 Controlled Substance Measures - Controlled Substance Measures Is patient prescribed a controlled substance at discharge?: No
== END ==
LOC: PNWHC3 08:33
PROVIDERS: ATTEND Specialist
DX: M50.323 Other cervical disc degeneration at C6-C7 level (principal); M47.812 Spondylosis without myelopathy or radiculopathy, cervical region; G89.29 Other chronic pain
CPT/HCPCS: 99211

== ENCOUNTER → 2023-09-16 | Day surgery (SDC) | payer MEDICARE, BC ==
[2023-09-14 12:02] VITALS: BMI 33.9
[~2023-09-16] MED LIST changes: +DEXAMETHASONE SOD PHOSPHATE 10 MG/ML 1 ML VIAL ONE; +IOPAMIDOL M200 10 ML VIAL ONE; +ROPIVACAINE 5MG/ML 20ML VIAL ONE
[2023-09-16 09:39] VITALS: TEMP 97.3
--- NOTE | 2023-09-16 10:39 | P.PCN ---
Description of Procedure: PROCEDURE 1. Cervical epidural steroid injection under fluoroscopic guidance, C5-6 (fluoroscopy images available in the radiology department ) 2. Cervical epidurogram. PREOPERATIVE DIAGNOSIS: 1- Cervical Degenerative Disc Diseases 2- Cervical radiculopathy., 3-cervical spondylosis with cervical Facet arthropathy without myelopathy.4-cervical spinal stenosis POSTOPERATIVE DIAGNOSIS: : 1- Cervical Degenerative Disc Diseases , 2- Cervical radiculopathy. 3-,cervical spondylosis with cervical Facet arthropathy without myelopathy. 4-cervical spinal stenosis ANESTHESIA: Local anesthetics infiltration. In the OR continuous pulse ox, EKG, blood pressure and verbal communication was maintained. EBL : None PROCEDURE INDICATION: The patient with neck pain and radiculitis unresponsive to conservative treatment consents for procedure. Discussed the procedure, alternatives and possible complications which may include increased pain, infection, bleeding, nerve damage, paralysis all of which could be permanent. Patient understands and all questions were answered. PROCEDURE DESCRIPTION : After getting consent patient was taken to the OR , positioned in prone position and time out was completed. A pillow was placed under the patients chest to increase the cervical interlaminar space. The cervical area was prepped and draped in the usual sterile fashion. Using anterior-posterior fluoroscopy, interlaminar space was identified and the skin over this site was marked and then infiltrated with 3 ml of 1% lidocaine subcutaneously. Subsequently, a 20- gauge 3-1/2-inch Tuohy epidural needle was inserted and advanced toward the epidural space with the loss of resistance technique using a syringe filled with preservative-free normal saline and guided by AP and lateral fluoroscopy. Negative CSF, negative blood, negative paresthesia. The correct needle position in the epidural space was verified with the injection of 2 mL of the water soluble contrast dye Isovue-200 and observing an excellent epidurogram with the epidural spread of the dye, after repeat negative aspiration 3 mL solution was injected which consists of 1 mL of preservative-free normal saline mixed with 2 mL of 20 mg dexamethasone and a washout of epidurogram was seen. Needle was withdrawn intact, skin was cleansed, and bandages were applied. Disposition: Patient tolerated the procedure well. No complication. Patient was placed in supine position and transferred to the recovery room area in stable condition and there was no evidence of upper or lower extremity motor or sensory deficit after the procedure patient was discharged from recovery room after discharge criteria met and home discharge instructions was given by the s ganga and patient will follow with the pain clinic in 2-4 weeks
[2023-09-16 10:53] VITALS: BP 125/83; PULSE 66; RESP 14
--- NOTE | 2023-09-16 11:35 | FL ---
EXAMINATION TYPE: FL guided pain mgmt statistic DATE OF EXAM: 09/16/2023 HISTORY: Fluoroscopy time Total dose area product (DAP) in uGy*m?, mGy*cm? (or similar): 0.80577 IMPRESSION: 1. Fluoroscopy time.
== END ==
LOC: ORPAIN 08:57
PROVIDERS: ATTEND Pain Medicine Interventional Pain Medicine
DX: M48.02 Spinal stenosis, cervical region (principal); M47.22 Other spondylosis with radiculopathy, cervical region; M50.122 Cervical disc disorder at C5-C6 level with radiculopathy; Z79.01 Long term (current) use of anticoagulants
CPT/HCPCS: 62321; J1100; Q9966; J2795

== ENCOUNTER → 2023-09-29 | Outpatient (CLI) | payer MEDICARE, BC ==
[2023-09-29 11:20] LABS: ALT 29 U/L (10-49); AST 21 U/L (14-35); Chol/HDL Ratio 4.57 Ratio; LDL Cholesterol,Calculated 113.3 mg/dL (0.0-131.0)
== END | disposition home or self-care (01) ==
LOC: LABWHC1 06:58
PROVIDERS: ATTEND Internal Medicine Interventional Cardiology
DX: E78.2 Mixed hyperlipidemia (principal)
CPT/HCPCS: 36415; 80061; 84450; 84460

== ENCOUNTER → 2023-10-14 | Outpatient (CLI) | payer MEDICARE, BC ==
[2023-10-14 08:54] VITALS: BP 110/77; PULSE 66; RESP 15; TEMP 98.6
--- NOTE | 2023-10-14 13:40 | P.PAINPG ---
Objective - Vital Signs Vital signs: Intake & Output 10/13/23 10/14/23 10/14/23 18:59 06:59 18:59 Weight 115.666 kg PQRS Measure Charge Sheet Comment: A 58 yr old male with a history of severe and chronic neck pain x 1 yr secondary to cervical DDD and spondylosis with facet arthropathy without myelopathy presents today for evaluation s/p ANOOP C5-C6 #1. Pt states he experienced 710% pain relief x 1 wks s/p procedure. Pain level is provoked at 6/10 in intensity, constant, localized in the lower cervical spine, predominantly axial, stiff in character without radiation of pain. Pain is provoked by rotation, over head reaching. Pain is alleviated with medications, injections, ice, PT in April/May 2022 for 6 weeks and physician advised him not to return assisted through, chiropractic treatments monthly for his cervical and lumbar spine since age 10, sitting and rest. Cervical disability score of 26. Interventional pain procedures completed include ANOOP C6-C7 x1, C5-C6 x1 Patient is currently on Ibu Patient denies any side effects of the medication(s), denies excessive drowsiness or sleepiness, denies suicidal ideation and reports that the current pain medication is helping to control the pain and improve activities of daily living. Patient denies any motor or sensory deficits. Patient denies any fever or night sweats, denies any change in the bowel movements or urination. Physical Examination: -Constitutional: Cooperative. Not in acute distress . - Neurologic: Cranial nerve II to XII intact. No focal neurological deficits. - Psychatric: Alert & oriented x 3. Matching mood & appropriate affect. Judgment and insight intact. - Musculoskeletal: Cervical spine: Muscle bulk/ tone/ strength in the bilateral upper extremities normal Vertebral body tenderness to palpation Spurling test positive Distraction test positive Facet loading test positive over BL C4-C5, C5-C6 Thoracic spine Muscle bulk / tone/ strength in the bilateral paraspinal muscles normal Vertebral body tender to palpation over Facet loading test positive Lumbar spine: Motor bulk/ tone/ strength lower extremities , thigh and legs : 5/5 Deep tendon reflexes : Normal Knee Jerk. Normal Ankle Jerk . Vertebral body tenderness to palpation over Lumbar Facet Loading Test positive Straight Leg Raise: positive at 30 degrees right side/ left side Gaenslen's Test positive Sacral spine : Severe tenderness over the Sacroiliac joint: right side / left side Range of motion: Flexion of the lumbar spine <60 degrees Range of motion: Extension of the lumbar spine <20 degrees Gaenslen's Test positive Bryon test: positive right side / left side Thigh Thrust Test Sacral Thrust Test Assessment and plan: Chronic neck pain secondary to cervical DDD, spondylosis with facet arthropathy without myelopathy Recommendation of BL MBB C4-C5, C5-C6 #1. May need a series of injections, up until RFA, for optimal pain relief. Risks, benefits of procedure discussed and pt verbalized understanding. Protocol for discontinuation/ continuation of medications jen procedure discussed. All patient questions answered I have spent less than 30 minutes on patient care today. Dr Garibay was available by phone for the evaluation of this patient. The time was used to review the medical records including relevant urine studies and Prescription history (MAPs), review of the available imaging, evaluation and examination of the patient, coordination of care with the medical staff and if applicable referring physicians, as well as creation of the medical record PQRS Narrative: Smoking Status Never smoker Hx Alcohol Use (MH) Yes: OCCASIONAL Home Medications: Ambulatory Orders Sertraline [Zoloft] 50 mg PO DAILY 02/05/14 Apixaban [Eliquis] 5 mg PO BID 10/14/18 Flecainide [Tambocor] 50 mg PO BID 10/14/18 Levothyroxine Sodium [Synthroid] 188 mcg PO DAILY 10/14/18 Olmesartan Medoxomil 40 mg PO DAILY 10/14/18 Fenofibrate Nanocrystallized [Tricor] 145 mg PO DAILY 04/08/20 diazePAM [Valium] 5 mg PO DAILY PRN 1 Days #2 tab 09/08/23 Controlled Substance Measures - Controlled Substance Measures Is patient prescribed a controlled substance at discharge?: No
== END ==
LOC: PNWHC3 07:54
PROVIDERS: ATTEND Specialist
DX: M50.321 Other cervical disc degeneration at C4-C5 level (principal); M47.812 Spondylosis without myelopathy or radiculopathy, cervical region; M50.322 Other cervical disc degeneration at C5-C6 level
CPT/HCPCS: 99211

== ENCOUNTER → 2023-11-30 | Day surgery (SDC) | payer MEDICARE, BC ==
[2023-11-25 16:33] VITALS: BMI 34.5
[2023-11-30] MEDS: LACTATED RINGERS 1,000 ML IV SCH (09:33)
[2023-11-30 09:48] VITALS: BP 122/74; PULSE 72; RESP 16; TEMP 97.3
--- NOTE | 2023-11-30 10:01 | P.PN ---
Progress Note - Text Progress Note Date: 11/30/23 History 58 years old male who was scheduled to have bilateral medial branch block cervical area at C4-5 and C5-6, in the preop holding area, I found that the patient took his Eliquis November 27 , and as per GABRIELLE recommendation, patient had to hold Eliquis for 3 days before the procedure, for this reason the procedure was canceled today, and patient will be rescheduled, and he has to hold Eliquis for 3 days before the procedure
== END ==
LOC: ORPAIN 08:52
PROVIDERS: ATTEND Anesthesiology
DX: Z53.8 Procedure and treatment not carried out for other reasons (principal); M47.812 Spondylosis without myelopathy or radiculopathy, cervical region

== ENCOUNTER 2023-12-10 11:57 | Day surgery (SDC) | payer MEDICARE, BC ==
[2023-12-10] MEDS: LACTATED RINGERS 1,000 ML IV SCH (11:54)
[2023-12-10] MEDS ORDERED: MIDAZOLAM 2 MG/2 ML VIAL ONE (12:50)
[2023-12-10] MEDS ORDERED: fentaNYL (PF) 50 MCG/ML 2 ML AMP ONE (12:50)
[2023-12-10] MEDS ORDERED: ROPIVACAINE 5MG/ML 20ML VIAL ONE (12:54)
[2023-12-10 13:09] VITALS: TEMP 97
--- NOTE | 2023-12-10 13:15 | P.PCN ---
Date of Procedure: 12/10/23 Procedure(s) Performed: PREOPERATIVE DIAGNOSIS: 1-Cervical Spondylosis with Facet Arthropathy.without myelopathy. 2-cervical degenerative disc disease POSTOPERATIVE DIAGNOSIS:1-cervical spondylosis with facet arthropathy without myelopathy. 2-cervical degenerative disc disease PROCEDURES: Diagnostic bilateral C4 , C5 , and C6 medial branch blocks, with fluoroscopic guidance (fluoroscopy images available in radiology department ) ( to target the facet joint at bilateral C4- 5 , C5- 6 ) #1st ANESTHESIA: Monitored anesthesia care as per anesthesia department. EBL: Minimal PROCEDURE INDICATION: The patient with neck pain secondary to cervical arthropathy unresponsive to more conservative treatments. PROCEDURE DESCRIPTION / TECHNIQUE: The patient was seen and identified in the preoperative area. Risks, benefits, complications, and alternatives were discussed with the patient, the patient agreed to proceed with the procedure and signed the consent. IV was started. Vital signs remained stable throughout the procedure. Patient was taken to the OR and time out was completed. The patient was placed in the lateral position on the procedure table. The cervical area was prepped and draped in the usual sterile fashion. Critical pause was taken. Vital signs were closely monitored during the procedure. Conscious sedation was used during the procedure to decrease patients anxiety. Using cross-table lateral fluoroscopy, the centroid of the trapezoid of right C4 , C5 and C6, was identified, marked, and localized with 1% lidocaine 1 ml at each level for skin and Sub Q infiltrations . Subsequently, a 22 G 3 spinal needle was advanced guided by fluoroscopy to the centroid of the trapezoid of Right C4 , C5, C6 . Evart tip position was confirmed at the centroid of the trapezoids of Right C4 , C5 ,C6 with anteroposterior fluoroscopy. Subsequently, 2 ml of preservative-free Ropivacaine 0.5% and half ml of the was injected after negative aspiration for blood and CSF. Evart was then removed intact the same procedure was repeated at the left C4 , C5 , C6 levels. COMPLICATIONS: No acute complications. DISPOSITION / PLANS: The patient was placed in a supine position and transferred to the recovery area in a stable condition for observation and was discharged from the recovery room after meeting discharge criteria. Home discharge instructions given to the patient by the staff. The patient was reexamined prior to discharge. The patient will schedule a follow up in the clinic in 2-4 weeks.
[2023-12-10] MEDS: LACTATED RINGERS 1,000 ML IV ONE (13:18)
[2023-12-10 14:20] VITALS: BP 138/71; PULSE 62; RESP 17
--- NOTE | 2023-12-10 17:16 | FL ---
EXAMINATION TYPE: FL guided pain mgmt statistic Intraoperative/procedural fluoroscopic services were provided. Total fluoroscopy time is 25 seconds with a total of 4 submitted images to PACS. Please see the operative/procedural note for further details. DAP: 0.1455 mGym2
== END 2023-12-10 13:49 | disposition home or self-care (01) ==
LOC: ORPAIN 11:57
PROVIDERS: ATTEND Specialist
DX: M47.812 Spondylosis without myelopathy or radiculopathy, cervical region (principal); M50.322 Other cervical disc degeneration at C5-C6 level; I48.91 Unspecified atrial fibrillation; G47.33 Obstructive sleep apnea (adult) (pediatric); E07.9 Disorder of thyroid, unspecified; M19.90 Unspecified osteoarthritis, unspecified site; K21.9 Gastro-esophageal reflux disease without esophagitis; Z79.890 Hormone replacement therapy; Z79.01 Long term (current) use of anticoagulants; Z79.899 Other long term (current) drug therapy
CPT/HCPCS: 64490; 64491 ×2; J2250; J3010; J2795

== ENCOUNTER → 2024-01-10 | Outpatient (CLI) | payer MEDICARE, BC ==
[2024-01-10 09:50] VITALS: BP 138/93; PULSE 64; RESP 16; TEMP 97.5
--- NOTE | 2024-01-10 13:56 | P.PAINPG ---
PQRS Measure Charge Sheet Comment: A 58 yr old male with a history of severe and chronic neck pain x 1 yr secondary to cervical DDD and spondylosis with facet arthropathy without myelopathy presents today for evaluation s/p BL MBB C4-C6 #1. Pt states he experienced 100 % pain relief x 8 hrs s/p procedure. Pain level is provoked at 6 /10 in intensity, constant, localized in the lower cervical spine, predominantly axial, sore in character without radiation of pain. Pain is provoked by rotation, over head reaching. Pain is alleviated with medications, injections, ice, PT in April/May 2022 for 6 weeks and physician advised him not to return intermediate through, chiropractic treatments monthly for his cervical and lumbar spine since age 10, sitting and rest. Cervical disability score of 25. Interventional pain procedures completed include ANOOP C6-C7 x1, C5-C6 x1, BL MBB C4-C6 x1 Patient is currently on Ibu Patient denies any side effects of the medication(s), denies excessive drowsiness or sleepiness, denies suicidal ideation and reports that the current pain medication is helping to control the pain and improve activities of daily living. Patient denies any motor or sensory deficits. Patient denies any fever or night sweats, denies any change in the bowel movements or urination. Physical Examination: -Constitutional: Cooperative. Not in acute distress . - Neurologic: Cranial nerve II to XII intact. No focal neurological deficits. - Psychatric: Alert & oriented x 3. Matching mood & appropriate affect. Judgment and insight intact. - Musculoskeletal: Cervical spine: Muscle bulk/ tone/ strength in the bilateral upper extremities normal Vertebral body tenderness to palpation Spurling test positive Distraction test positive Facet loading test positive over BL C4-C5, C5-C6 Thoracic spine Muscle bulk / tone/ strength in the bilateral paraspinal muscles normal Vertebral body tender to palpation over Facet loading test positive Lumbar spine: Motor bulk/ tone/ strength lower extremities , thigh and legs : 5/5 Deep tendon reflexes : Normal Knee Jerk. Normal Ankle Jerk . Vertebral body tenderness to palpation over Lumbar Facet Loading Test positive Straight Leg Raise: positive at 30 degrees right side/ left side Gaenslen's Test positive Sacral spine : Severe tenderness over the Sacroiliac joint: right side / left side Range of motion: Flexion of the lumbar spine <60 degrees Range of motion: Extension of the lumbar spine <20 degrees Gaenslen's Test positive Bryon test: positive right side / left side Thigh Thrust Test Sacral Thrust Test Assessment and plan: Chronic neck pain secondary to cervical DDD, spondylosis with facet arthropathy without myelopathy Recommendation of BL MBB C4-C5, C5-C6 #2. May need a series of injections, up until RFA, for optimal pain relief. Risks, benefits of procedure discussed and pt verbalized understanding. Minimal anesthesia including Fentanyl and Versed if clinically indicated. Protocol for discontinuation/ continuation of medications jen procedure discussed. All patient questions answered I have spent less than 30 minutes on patient care today. Dr Garibay was nicko ilable by phone for the evaluation of this patient. The time was used to review the medical records including relevant urine studies and Prescription history (MAPs), review of the available imaging, evaluation and examination of the patient, coordination of care with the medical staff and if applicable referring physicians, as well as creation of the medical record PQRS Narrative: Smoking Status Never smoker Hx Alcohol Use (MH) Yes: OCCASIONAL Home Medications: Ambulatory Orders Sertraline [Zoloft] 50 mg PO QAM 02/05/14 Apixaban [Eliquis] 5 mg PO QAM 10/14/18 Flecainide [Tambocor] 50 mg PO QAM 10/14/18 Levothyroxine Sodium [Synthroid] 188 mcg PO QAM 10/14/18 Olmesartan Medoxomil 40 mg PO QAM 10/14/18 Fenofibrate Nanocrystallized [Tricor] 145 mg PO QAM 04/08/20 Ibuprofen [Motrin] 600 mg PO Q8HR PRN 12/09/23 Controlled Substance Measures - Controlled Substance Measures Is patient prescribed a controlled substance at discharge?: No
== END ==
LOC: PNWHC3 07:55
PROVIDERS: ATTEND Specialist
DX: M50.321 Other cervical disc degeneration at C4-C5 level (principal); M50.322 Other cervical disc degeneration at C5-C6 level; G89.29 Other chronic pain; M47.812 Spondylosis without myelopathy or radiculopathy, cervical region
CPT/HCPCS: 99211

== ENCOUNTER → 2024-03-08 | Outpatient (CLI) | payer MEDICARE, BC ==
[2024-03-08 09:04] VITALS: BP 129/80; PULSE 60; RESP 16; TEMP 97.1
--- NOTE | 2024-03-08 14:48 | P.PAINPG ---
PQRS Measure Charge Sheet Comment: A 58 yr old male with a history of severe and chronic neck pain x 1 yr secondary to cervical DDD and spondylosis with facet arthropathy without myelopathy presents today for evaluation s/p BL MBB C4-C6 #2. Pt states he experienced 100 % pain relief x 8 hrs s/p procedure. Pain level is provoked at 8 /10 in intensity, constant, localized in the lower cervical spine, predominantly axial, sore in character without radiation of pain. Pain is provoked by rotation, over head reaching. Pain is alleviated with medications, injections, ice, PT in April/May 2022 for 6 weeks and physician advised him not to return [facility] through, chiropractic treatments monthly for his cervical and lumbar spine since age 10, sitting and rest. Cervical disability score of 24. Interventional pain procedures completed include ANOOP C6-C7 x1, C5-C6 x1, BL MBB C4-C6 x2 Patient is currently on Ibu Patient denies any side effects of the medication(s), denies excessive drowsiness or sleepiness, denies suicidal ideation and reports that the current pain medication is helping to control the pain and improve activities of daily living. Patient denies any motor or sensory deficits. Patient denies any fever or night sweats, denies any change in the bowel movements or urination. Physical Examination: -Constitutional: Cooperative. Not in acute distress . - Neurologic: Cranial nerve II to XII intact. No focal neurological deficits. - Psychatric: Alert & oriented x 3. Matching mood & appropriate affect. Judgment and insight intact. - Musculoskeletal: Cervical spine: Muscle bulk/ tone/ strength in the bilateral upper extremities normal Vertebral body tenderness to palpation Spurling test positive Distraction test positive Facet loading test positive over BL C4-C5, C5-C6 Thoracic spine Muscle bulk / tone/ strength in the bilateral paraspinal muscles normal Vertebral body tender to palpation over Facet loading test positive Lumbar spine: Motor bulk/ tone/ strength lower extremities , thigh and legs : 5/5 Deep tendon reflexes : Normal Knee Jerk. Normal Ankle Jerk . Vertebral body tenderness to palpation over Lumbar Facet Loading Test positive Straight Leg Raise: positive at 30 degrees right side/ left side Gaenslen's Test positive Sacral spine : Severe tenderness over the Sacroiliac joint: right side / left side Range of motion: Flexion of the lumbar spine <60 degrees Range of motion: Extension of the lumbar spine <20 degrees Gaenslen's Test positive Bryon test: positive right side / left side Thigh Thrust Test Sacral Thrust Test Assessment and plan: Chronic neck pain secondary to cervical DDD, spondylosis with facet arthropathy without myelopathy Recommendation of BL RFA C4-C6. Exhibited optimal pain relief w prior BL MBB procedures. Risks, benefits of procedure discussed and pt verbalized understanding. Minimal anesthesia including Fentanyl and Versed if clinically indicated. Protocol for discontinuation/ continuation of medications jen procedure discussed. All patient questions answered I have spent less than 30 minutes on patient care today. Dr Garibay was available by phone for the evaluation of this patient. The time was used to review the medical records including relevant urine studies and Prescription history (MAPs), review of the available imaging, evaluation and examination of the patient, coordination of care with the medical staff and if applicable referring physicians, as well as creation of the medical record PQRS Narrative: Smoking Status Never smoker Hx Alcohol Use (MH) Yes: OCCASIONAL Home Medications: Ambulatory Orders Sertraline [Zoloft] 50 mg PO QAM 02/05/14 Apixaban [Eliquis] 5 mg PO QAM 10/14/18 Flecainide [Tambocor] 50 mg PO QAM 10/14/18 Levothyroxine Sodium [Synthroid] 188 mcg PO QAM 10/14/18 Olmesartan Medoxomil 40 mg PO QAM 10/14/18 Fenofibrate Nanocrystallized [Tricor] 145 mg PO QAM 04/08/20 Ibuprofen [Motrin] 600 mg PO Q8HR PRN 12/09/23 Controlled Substance Measures - Controlled Substance Measures Is patient prescribed a controlled substance at discharge?: No
== END ==
LOC: PNWHC3 08:46
PROVIDERS: ATTEND Specialist
DX: M47.812 Spondylosis without myelopathy or radiculopathy, cervical region (principal); M50.321 Other cervical disc degeneration at C4-C5 level; M50.322 Other cervical disc degeneration at C5-C6 level
CPT/HCPCS: 99211

== ENCOUNTER 2024-03-21 06:18 | Day surgery (SDC) | payer MEDICARE, BC ==
[2024-03-21 06:58] VITALS: RESP 16; TEMP 97.4
[2024-03-21] MEDS: LACTATED RINGERS 1,000 ML IV SCH (06:58)
[2024-03-21] MEDS: LIDOCAINE 1% (10MG/ML) FOR IV START INTRADERMA ONE (07:00)
[2024-03-21] MEDS: IV FLUID CONTINUATION 1,000 ML IV ONE ×2 (07:00→08:03)
[2024-03-21] MEDS ORDERED: fentaNYL (PF) 50 MCG/ML 2 ML AMP ONE (07:31)
[2024-03-21] MEDS ORDERED: MIDAZOLAM 2 MG/2 ML VIAL ONE (07:31)
[2024-03-21] MEDS ORDERED: ROPIVACAINE 5MG/ML 20ML VIAL ONE (07:31)
[2024-03-21 08:19] VITALS: BP 115/77; PULSE 61
--- NOTE | 2024-03-21 08:46 | P.PCN ---
Description of Procedure: Procedure done. Left C4-5, C5-6 facet joint (C4.5,6 medial branch of dorsal ramus ) radiofrequency ablation under fluoroscopic guidance. Anesthesia. Versrd and Fentanyl IV. Continuous pulse ox, EKG, blood pressure and verbal communication was maintained with the patient in OR. Blood loss. None. Indication. Patient has got the diagnoses of cervical spondylolysis, facet joint arthropathy with neck pain. Diagnostic medial branch block relieved significant pain. Discussed with the patient procedure, alternatives, complications including infection, bleeding, nerve damage, paralysis all of which could be permanent. Patient understands and all questions are answered. Procedure note. After getting consent patient in OR in prone position. Back of the neck was prepped with chlorhexidine and draped in sterile fashion. After injecting 5 mL of plain 1% lidocaine subcutaneously, a 20-gauge RFA needle was introduced under tunnel vision of the fluoroscope AP view at the waist of the articular pillar (lateral mass) at C4 vertebral level. In the lateral view of the fluoroscope it was confirmed that the tip of the needle stayed within the dorsal half of the articular pillar (lateral mass). C4-5 facet joint was targeted by blocking C4 and C5 medial branch, C5-6 facet joint was targeted by blocking C5 and C6 medial branch . After subcutaneous injection of lidocaine, 20-gauge RFA needle were introduced under tunnel vision of the fluoroscope AP view at the waist of the articular pillars (lateral mass) at C5 vertebral level. In the lateral view of the fluoroscope it was confirmed that the tip of the needle stayed within the dorsal half of the articular pillar (lateral mass). After subcutaneous injection of lidocaine, 20-gauge RFA needle were introduced under tunnel vision of the fluoroscope AP view at the waist of the articular pillars (lateral mass) at C6 vertebral level. In the lateral view of the fluo roscope it was confirmed that the tip of the needle stayed within the dorsal half of the articular pillar (lateral mass). . After positive sensory and negative motor stimulation,injection of 1 ml of 0.5% Ropivacaine, radiofrequency ablation was done at 80 C's for 90 seconds. Second lesion was done at the same settings after rotating the needls 180 degrees. After the procedure needle was taken out and bandage was applied. Disposition. Patient tolerated the procedure well. No complication. Discharged home in stable condition.
--- NOTE | 2024-03-21 09:08 | FL ---
EXAMINATION TYPE: FL guided pain mgmt statistic Intraoperative/procedural fluoroscopic services were provided. Total fluoroscopy time is 40.3 seconds with a total of 2 submitted images to PACS. Please s ee the operative/procedural note for further details. DAP: 0.20591 mGym2
== END 2024-03-21 08:33 | disposition home or self-care (01) ==
LOC: ORPAIN 06:18
PROVIDERS: ATTEND Pain Medicine Interventional Pain Medicine
DX: M47.812 Spondylosis without myelopathy or radiculopathy, cervical region (principal); Z79.01 Long term (current) use of anticoagulants
CPT/HCPCS: 64633; 64634; J2250; J3010; J2795; 99152

== ENCOUNTER 2024-04-18 05:57 | Day surgery (SDC) | payer MEDICARE, BC ==
[2024-04-18 06:39] VITALS: TEMP 97.2
[2024-04-18] MEDS: LACTATED RINGERS 1,000 ML IV SCH (06:44)
[2024-04-18] MEDS: IV FLUID CONTINUATION 1,000 ML IV ONE ×2 (06:45→06:57)
[2024-04-18] MEDS ORDERED: ROPIVACAINE 5MG/ML 20ML VIAL ONE (07:05)
[2024-04-18] MEDS ORDERED: MIDAZOLAM 2 MG/2 ML VIAL ONE (07:05)
[2024-04-18] MEDS ORDERED: fentaNYL (PF) 50 MCG/ML 2 ML AMP ONE (07:05)
--- NOTE | 2024-04-18 07:21 | P.PCN ---
Date of Procedure: 04/18/24 Description of Procedure: PREOPERATIVE DIAGNOSIS: Cervical spondylosis without myelopathy POSTOPERATIVE DIAGNOSIS: Cervical spondylosis without myelopathy PROCEDURES: Radiofrequency thermocoagulation of right C4 5, C5-C6 Imaging: Fluoroscopy was used, images where saved to the medical record ANESTHESIA: Patient re-evaluated immediately prior to sedation Medication Administered by: Nurse Sedation Type: Moderate sedation Sedation Supervision start time: 704 Sedation Supervision end time: 720 EBL: Minimal PROCEDURE INDICATION: The patient with neck pain secondary to cervical arthropathy who had more than 50% relief of her pain with previous diagnostic cervical medial branch block. PROCEDURE DESCRIPTION / TECHNIQUE: The patient was seen and identified in the preoperative area. Risks, benefits, complications, and alternatives were discussed with the patient, the patient agreed to proceed with the procedure and signed the consent. IV was started. Vital signs remained stable throughout the procedure. Patient was taken to the OR and time out was completed. The patient was placed in the prone position on the procedure table. A pillow was placed under the patient's chest to increase the cervical interlaminar space. The cervical area was prepped and draped in the usual sterile fashion. Critical pause was taken. Vital signs were closely monitored during the procedure. Conscious sedation was used during the procedure to decrease patient's anxiety. Using cross-table lateral fluoroscopy, the centroid of the trapezoid of the above referenced levels were identified, marked, and localized with 1% lidocaine. Subsequently, a 20 [id number] radiofrequency cannula with a 10-mm active tip was advanced guided by fluoroscopy to the centroid of the trapezoid of the above referenced levels. Needle tip position was confirmed at the centroid of the trapezoids of the above referenced levels with anteroposterior fluoroscopy. Each site then underwent sensory testing at 50 Hz and 0 to 1 volt and motor testing at 2 Hz and 0 to 3 volt with local stimulation, but no radicular symptoms down the arm. Thereafter the targeted sites underwent radiofrequency thermocoagulation at 80 degrees celsius for 90 seconds after injecting 0.5 ml of PF lidocaine 1%. After thermocoagulation of the targeted sites, 1 ml of 1% lidocaine was then injected after negative aspiration of CSF and blood and with no paresthesias. Cannulas were retracted while injecting lidocaine 1% until the needle is out. Skin was cleansed and bandages were applied. COMPLICATIONS: No acute complications. DISPOSITION / PLANS: The patient was placed in a supine position and transferred to the recovery area in a stable condition for observation and was discharged from the recovery room after meeting discharge criteria. Home discharge instructions given to the patient by the staff. The patient was re examined prior to discharge. The patient will schedule a follow up as directed.
[2024-04-18] MEDS: IV FLUID CONTINUATION 600 ML IV ONE (07:25)
--- NOTE | 2024-04-18 07:31 | FL ---
EXAMINATION TYPE: FL guided pain mgmt statistic DATE OF EXAM: 04/18/2024 HISTORY: Fluoroscopy time Total dose area product (DAP) in uGy*m?, mGy*cm? (or similar): 0.53174 IMPRESSION: 1. Fluoroscopy time.
[2024-04-18 07:46] VITALS: BP 119/71; PULSE 65; RESP 18
== END 2024-04-18 08:00 | disposition home or self-care (01) ==
LOC: ORPAIN 05:57
PROVIDERS: ATTEND Hospitalist
DX: M47.812 Spondylosis without myelopathy or radiculopathy, cervical region (principal); Z79.1 Long term (current) use of non-steroidal anti-inflammatories (NSAID); Z79.01 Long term (current) use of anticoagulants
CPT/HCPCS: 64633; 64634; 99152; J2250; J3010; J2795

== ENCOUNTER → 2024-05-24 | Outpatient (CLI) | payer MEDICARE, BC ==
[2024-05-24 09:25] VITALS: BP 133/92; PULSE 60; RESP 16; TEMP 98.6
--- NOTE | 2024-05-24 14:01 | P.PAINPG ---
PQRS Measure Charge Sheet Comment: A 58 yr old male with a history of severe and chronic neck pain x 1 yr secondary to cervical DDD and spondylosis with facet arthropathy without myelopathy presents today for evaluation s/p BL RFA C4-C5, C5-C6. Pt states he experienced 50 % pain relief s/p procedure. Pain level is provoked at 7 /10 in intensity, intermittent, localized in the cervical spine, predominantly axial, sore in character without radiation of pain. Pain is provoked by rotation, over head reaching. Pain is alleviated with medications, injections, ice, PT in April/May 2022 for 6 weeks and physician advised him not to return assisted through, chiropractic treatments monthly for his cervical and lumbar spine since age 10, sitting and rest. Interventional pain procedures completed include ANOOP C6-C7 x1, C5-C6 x1, BL RFA C4-C6 (Feb-Mar 2024) Patient is currently on Ibu Patient denies any side effects of the medication(s), denies excessive drowsiness or sleepiness, denies suicidal ideation and reports that the current pain medication is helping to control the pain and improve activities of daily living. Patient denies any motor or sensory deficits. Patient denies any fever or night sweats, denies any change in the bowel movements or urination. Physical Examination: -Constitutional: Cooperative. Not in acute distress . - Neurologic: Cranial nerve II to XII intact. No focal neurological deficits. - Psychatric: Alert & oriented x 3. Matching mood & appropriate affect. Judgment and insight intact. - Musculoskeletal: Cervical spine: Muscle bulk/ tone/ strength in the bilateral upper extremities normal Vertebral body tenderness to palpation Spurling test positive Distraction test positive Facet loading test positive over BL C4-C5, C5-C6 Taut bands w twitch response over BL C4-T2 Thoracic spine Muscle bulk / tone/ strength in the bilateral paraspinal muscles normal Vertebral body tender to palpation over Facet loading test positive Lumbar spine: Motor bulk/ tone/ strength lower extremities , thigh and legs : 5/5 Deep tendon reflexes : Normal Knee Jerk. Normal Ankle Jerk . Vertebral body tenderness to palpation over Lumbar Facet Loading Test positive Straight Leg Raise: positive at 30 degrees right side/ left side Gaenslen's Test positive Sacral spine : Severe tenderness over the Sacroiliac joint: right side / left side Range of motion: Flexion of the lumbar spine <60 degrees Range of motion: Extension of the lumbar spine <20 degrees Gaenslen's Test positive Bryon test: positive right side / left side Thigh Thrust Test Sacral Thrust Test Assessment and plan: Chronic neck pain secondary to cervical DDD, spondylosis with facet arthropathy without myelopathy Recommendation of BL TPIs C4-T2 #1. Risks, benefits of procedure discussed and pt verbalized understanding. Protocol for discontinuation/ continuation of medications jen procedure discussed. All patient questions answered I have spent less than 30 minutes on patient care today. Dr Garibay was available by phone for the evaluation of this patient. The time was used to review the medical records including relevant urine studies and Prescription history (MAPs), review of the available imaging, evaluation and examination of the patient, coordination of care with the medical staff and if applicable re [facility] physicians, as well as creation of the medical record PQRS Narrative: Smoking Status Never smoker Hx Alcohol Use (MH) Yes: OCCASIONAL Home Medications: Ambulatory Orders Sertraline [Zoloft] 50 mg PO QAM 02/05/14 Apixaban [Eliquis] 5 mg PO QAM 10/14/18 Flecainide [Tambocor] 50 mg PO QAM 10/14/18 Levothyroxine Sodium [Synthroid] 200 mcg PO QAM 10/14/18 Olmesartan Medoxomil 40 mg PO QAM 10/14/18 Fenofibrate Nanocrystallized [Tricor] 145 mg PO QAM 04/08/20 Ibuprofen [Motrin] 600 mg PO Q8HR PRN 12/09/23 Controlled Substance Measures - Controlled Substance Measures Is patient prescribed a controlled substance at discharge?: No
== END ==
LOC: PNWHC3 08:48
PROVIDERS: ATTEND Specialist
DX: M47.812 Spondylosis without myelopathy or radiculopathy, cervical region
CPT/HCPCS: 99211

== ENCOUNTER 2024-07-13 07:46 | Day surgery (SDC) | payer MEDICARE, BC ==
[2024-07-10 14:11] VITALS: BMI 33.9
[~2024-07-13 07:46] MED LIST changes: -DEXAMETHASONE SOD PHOSPHATE 10 MG/ML 1 ML VIAL ONE; -IOPAMIDOL M200 10 ML VIAL ONE; -ROPIVACAINE 5MG/ML 20ML VIAL ONE
[2024-07-13 08:02] VITALS: TEMP 96.9
[2024-07-13] MEDS ORDERED: methylPREDNISolone ACETATE 40 MG/ML 1 ML VIAL ONE (08:42)
[2024-07-13] MEDS ORDERED: ROPIVACAINE 5MG/ML 20ML VIAL ONE (08:42)
--- NOTE | 2024-07-13 08:49 | P.PCN ---
Date of Procedure: 07/13/24 Procedure(s) Performed: Procedure= trigger point injections cervical paraspinal muscles bilaterally , 2 on the right side from C4 to T1, and 4 on the left side from C4 to T1 Preoperative diagnosis= 1-myofascial pain syndrome Cervical paraspinal muscles 2-Cervical facet arthropathy Postoperative diagnosis=Same as preop Diagnosis . Complication = none Condition= stable Anesthesia= none. Indication for the procedure= patient complaining of low back pain , examination was positive for multiple trigger point in the cervical paraspinal muscles bilaterally and patient diagnosed with myofascial pain syndrome and is here to have trigger point injections Description of the procedure= procedure risk and benefits discussed with the patient, including but not limited, risk of infection and bleeding, and ALLERGIC reaction to the medication and not complete pain relief and patient agreed with the preceding patient taken to the operating room, placed in sitting position or standard monitors applied to the patient then the cervical area prepped with chlorhexidine 3 times , then under sterile technique each of the trigger point that was marked in the preop holding area 2 on the right side cervical paraspinal muscles and 4 on the left side cervical paraspinal muscles each one of them injected with the 2 mL of the mixture of ropivacaine 0.5% 12 ML mixed with 40 mg of Depo-Medrol and 2 mL of the mixture injected at each trigger point after negative aspiration, using 25-gauge needle, injection done after negative aspiration under was no paresthesia during the injection patient tolerated the procedure well without any complications and he will follow up in the pain clinic in a few weeks
[2024-07-13 09:07] VITALS: BP 128/85; PULSE 59; RESP 20
== END 2024-07-13 09:12 | disposition home or self-care (01) ==
LOC: ORPAIN 07:46
PROVIDERS: ATTEND Specialist
DX: M79.18 Myalgia, other site (principal); M47.812 Spondylosis without myelopathy or radiculopathy, cervical region
CPT/HCPCS: 20553

== ENCOUNTER → 2024-07-26 | Outpatient (CLI) | payer MEDICARE, BC ==
[2024-07-26 10:39] VITALS: BP 130/85; PULSE 67; RESP 16; TEMP 97.1
--- NOTE | 2024-07-26 14:34 | P.PAINPG ---
Objective - Vital Signs Vital signs: Vital Signs Temp 97.1 F L 07/26/24 10:33 Pulse 67 07/26/24 10:33 Resp 16 07/26/24 10:33 BP 130/85 07/26/24 10:33 Pulse Ox 94 L 07/26/24 10:33 FiO2 Intake & Output 07/25/24 07/26/24 07/26/24 18:59 06:59 18:59 Weight 115.666 kg PQRS Measure Charge Sheet Mode of Arrival: Ambulatory Comment: A 58 yr old male with a history of severe and chronic neck pain x 1 yr secon raman to radiculopathy, spondylosis with facet arthropathy without myelopathy presents today for evaluation s/p BL TPIs C4-T2 #1. Pt states he experienced 70 % pain relief x 2 wks s/p procedure. Pain level is provoked at 7 /10 in intensity, intermittent, localized in the lumbar spine, predominantly axial, dull in character w radiation of pain down the back of the LEs. Pain is provoked by walking/standing for periods > 20 min. Pain is alleviated with medications, injections, ice, PT in April/May 2022 (cervical) for 6 weeks and physician advised him not to return [facility] through, chiropractic treatments monthly (cervical, lumbar) since age 10, repositioning and rest. Interventional pain procedures completed include ANOOP C6-C7 x1, C5-C6 x1, BL RFA C4-C6 (Feb-Mar 2024), BL TPIs C4-T2 x1 (Jun 2024) Patient is currently on Ibu Patient denies any side effects of the medication(s), denies excessive drowsiness or sleepiness, denies suicidal ideation and reports that the current pain medication is helping to control the pain and improve activities of daily living. Patient denies any motor or sensory deficits. Patient denies any fever or night sweats, denies any change in the bowel movements or urination. Physical Examination: -Constitutional: Cooperative. Not in acute distress . - Neurologic: Cranial nerve II to XII intact. No focal neurological deficits. - Psychatric: Alert & oriented x 3. Matching mood & appropriate affect. Judgment and insight intact. - Musculoskeletal: Cervical spine: Muscle bulk/ tone/ strength in the bilateral upper extremities normal Vertebral body tenderness to palpation Spurling test positive Distraction test positive Facet loading test positive over BL C4-C5, C5-C6 Taut bands w twitch response over BL C4-T2 Thoracic spine Muscle bulk / tone/ strength in the bilateral paraspinal muscles normal Vertebral body tender to palpation over Facet loading test positive Lumbar spine: Motor bulk/ tone/ strength lower extremities , thigh and legs : 5/5 Deep tendon reflexes : Normal Knee Jerk. Normal Ankle Jerk . Vertebral body tenderness to palpation over L5 Lumbar Facet Loading Test positive Straight Leg Raise: positive at 30 degrees right side/ left side Gaenslen's Test positive Sacral spine : Severe tenderness over the Sacroiliac joint: right side / left side Range of motion: Flexion of the lumbar spine <60 degrees Range of motion: Extension of the lumbar spine <20 degrees Gaenslen's Test positive Bryon test: positive right side / left side Thigh Thrust Test Sacral Thrust Test Imaging: MRI non contrast lumbar spine from 02/02/[address] non contrast cervical spine from 04/03/22 reviewed Assessment and plan: Chronic neck pain and LBP secondary to radiculopathy, spondylosis with facet arthropathy without myelopathy Recommendation of lumbar x ray M54.16. All patient questions answered I have spent less than 30 minutes on patient care today. Dr Garibay was available by phone for the evaluation of this patient. The time was used to review the medical records including relevant urine studies and Prescription history (MAPs), review of the available imaging, evaluation and examination of the patient, coordination of care with the medical staff and if applicable referring physicians, as well as creation of the medical record - Pain Location Bilateral Lower Back Non-Pharmacological Interventions: Chiropractic Treatment, Heat, Ice, Position/Reposition, Sitting Pharmacological Interventions: PRN Medication PQRS Narrative: Smoking Status Never smoker Blood Pressure 130/85 Pain Intensity [Bilateral 4 Lower Back] Scale Used Numeric (1 - 10) Hx Alcohol Use (MH) Yes: OCCASIONAL Home Medications: Ambulatory Orders Sertraline [Zoloft] 50 mg PO QAM 02/05/14 Apixaban [Eliquis] 5 mg PO QAM 10/14/18 Flecainide [Tambocor] 50 mg PO QAM 10/14/18 Levothyroxine Sodium [Synthroid] 200 mcg PO QAM 10/14/18 Olmesartan Medoxomil 40 mg PO QAM 10/14/18 Fenofibrate Nanocrystallized [Tricor] 145 mg PO QAM 04/08/20 Ibuprofen [Motrin] 600 mg PO Q8HR PRN 12/09/23 Controlled Substance Measures - Controlled Substance Measures Is patient prescribed a controlled substance at discharge?: No
== END ==
LOC: PNWHC3 10:15
PROVIDERS: ATTEND Specialist
DX: M47.22 Other spondylosis with radiculopathy, cervical region (principal)
CPT/HCPCS: 99211

== ENCOUNTER → 2024-08-28 | Outpatient (CLI) | payer MEDICARE, BC ==
--- NOTE | 2024-08-28 08:35 | XR ---
EXAMINATION TYPE: XR lumbar spine 2 or 3V DATE OF EXAM: 08/28/2024 8:14 AM COMPARISON: None CLINICAL INDICATION: Male, 59 years old with history of M54.6 PAIN IN THORACIC SPINE; TECHNIQUE: XR lumbar spine 2 or 3V - Frontal, lateral and coned in L5-S1 lateral views of the spine. FINDINGS: No evidence of any acute osseous pathology. No evidence of loss of vertebral body height i s seen. There is normal alignment of the lumbar vertebral bodies. Scattered disc space narrowing. Mul tilevel marginal osteophyte formation throughout the visualized spine. There is facet joint arthropat hy throughout the spine. Scattered at least mild neural foraminal stenosis. IMPRESSION: 1. No acute fracture. 2. Mild multilevel disc degeneration. [facility], , 08/28/2024 8:33 AM
== END | disposition home or self-care (01) ==
LOC: RADXRWHC 08:02
PROVIDERS: ATTEND Physician Assistant Medical
DX: M51.16 Intervertebral disc disorders with radiculopathy, lumbar region (principal)
CPT/HCPCS: 72100

== ENCOUNTER → 2024-08-29 | Outpatient (CLI) | payer BC, MEDICARE ==
--- NOTE | 2024-08-29 11:00 | MR ---
EXAMINATION TYPE: MR lumbar spine wo con DATE OF EXAM: 08/29/2024 10:11 AM COMPARISON: 08/28/2024. CLINICAL INDICATION: Male, 59 years old with history of radiculopathy; PHH, Lower back pain, BLE radi culopathy. TECHNIQUE: Multi planar, multi sequence imaging was performed utilizing: T1-weighted, T2-weighted, a nd turbo inversion recovery imaging of the lumbar spine. IV Contrast: mL (None, if empty) FINDINGS: Alignment: The lumbar vertebral bodies have preserved heights and alignment. Cord: The conus medullaris and the distal spinal cord appear unremarkable with regards to their signa l intensity and morphology. Bones/Discs: High T1/high T2 signal L4 vertebral body probable vertebral body hemangioma. Mild degene ration changes throughout the spine with osteophyte formation and facet joint arthropathy. Multilevel disc desiccation is present. No abnormal inversion recovery signal to suggest bony edema. T12-L1: No evidence of significant spinal canal stenosis or neural foraminal stenosis. L1-L2: No evidence of significant spinal canal stenosis or neural foraminal stenosis. L2-L3: No evidence of significant spinal canal stenosis or neural foraminal stenosis. L3-L4: Disc bulge and facet joint arthropathy without significant spinal canal stenosis and mild bila teral neural foraminal stenosis. L4-L5: Disc bulge and facet joint arthropathy without significant spinal canal stenosis and moderate bilateral neural foraminal stenosis. L5-S1: The disc has a rounded posterior morphology without significant spinal canal stenosis. Facet j oint arthropathy with moderate right and mild left neural foraminal stenosis. No significant spinal canal or neural foraminal stenosis in the remainder of the visualized levels. Other findings: Bilateral high T2 signal probable renal cysts. IMPRESSION: 1. No definitive evidence of disc herniation or significant spinal canal stenosis. 2. Multilevel disc degeneration with associated osteoarthritic changes. Neural foraminal stenosis wo rse at L4-L5 and L5-S1 with moderate bilateral L4-L5 and moderate right L5-S1 neural foraminal stenos is. [facility], , 08/29/2024 10:58 AM
== END | disposition home or self-care (01) ==
LOC: RADMRIMAIN 09:25
PROVIDERS: ATTEND Specialist
DX: M51.16 Intervertebral disc disorders with radiculopathy, lumbar region (principal); M99.73 Connective tissue and disc stenosis of intervertebral foramina of lumbar region
CPT/HCPCS: 72148

== ENCOUNTER → 2024-09-18 | Outpatient (CLI) | payer MEDICARE ==
[2024-09-18 09:37] VITALS: BP 135/93; PULSE 70; RESP 20; TEMP 97.4
--- NOTE | 2024-09-18 14:52 | P.PAINPG ---
PQRS Measure Charge Sheet Comment: A 59 yr old male with a history of severe and chronic neck pain x 1 yr secondary to radiculopathy, spondylosis, BL L4-S1 facet arthropathy without myelopathy presents today for evaluation. Pain level is provoked at 8 /10 in intensity, intermittent, localized in the cervical spine, predominantly axial, dull in character w radiation of pain down the back of the LEs. Pain is provoked by walking/standing for periods > 20 min. Pain is alleviated with medications, injections, ice, PT in April/May 2022 (cervical) for 6 weeks, physician guided home stretches and exercises every other day since May 2022 (cervical, lumbar) which he is currently in, chiropractic treatments monthly (cervical, lumbar) since age 10, repositioning and rest. Interventional pain procedures completed include ANOOP C6-C7 x1, C5-C6 x1, BL RFA C4-C6 (Feb-Mar 2024), BL TPIs C4-T2 x1 (Jun 2024) Patient is currently on Ibu Patient denies any side effects of the medication(s), denies excessive drowsiness or sleepiness, denies suicidal ideation and reports that the current pain medication is helping to control the pain and improve activities of daily living. Patient denies any motor or sensory deficits. Patient denies any fever or night sweats, denies any change in the bowel movements or urination. Physical Examination: -Constitutional: Cooperative. Not in acute distress . - Neurologic: Cranial nerve II to XII intact. No focal neurological deficits. - Psychatric: Alert & oriented x 3. Matching mood & appropriate affect. Judgment and insight intact. - Musculoskeletal: Cervical spine: Muscle bulk/ tone/ strength in the bilateral upper extremities normal Vertebral body tenderness to palpation C7 Spurling test positive Distraction test positive Facet loading test positive over BL C4-C5, C5-C6 Taut bands w twitch response over BL C4-T2 Thoracic spine Muscle bulk / tone/ strength in the bilateral paraspinal muscles normal Vertebral body tender to palpation over Facet loading test positive Lumbar spine: Motor bulk/ tone/ strength lower extremities , thigh and legs : 5/5 Deep tendon reflexes : Normal Knee Jerk. Normal Ankle Jerk . Vertebral body tenderness to palpation over L5 Lumbar Facet Loading Test positive Straight Leg Raise: positive at 30 degrees right side/ left side Gaenslen's Test positive Sacral spine : Severe tenderness over the Sacroiliac joint: right side / left side Range of motion: Flexion of the lumbar spine <60 degrees Range of motion: Extension of the lumbar spine <20 degrees Gaenslen's Test positive Bryon test: positive right side / left side Thigh Thrust Test Sacral Thrust Test Imaging: MRI non contrast lumbar spine from 08/29/[address] non contrast cervical spine from 04/03/22 reviewed Assessment and plan: Chronic neck pain and LBP secondary to radiculopathy, spondylosis, BL L4- S1 facet arthropathy without myelopathy Recommendation of cervical x ray M 54.12 and methylprednisone dosepack #21 Use, side effects, adverse reactions, safe storage discussed. All patient questions answered I have spent less than 30 minutes on patient care today. Dr Garibay was available by phone for the evaluation of this patient. The time was used to review the medical records including relevant urine studies and Prescription history (MAPs), review of the available imaging, evaluation and examination of the patient, coordination of care with the medical staff and if applicable referring physicians, as well as creation of the medical record PQRS Narrative: Smoking Status Never smoker Hx Alcohol Use (MH) Yes: OCCASIONAL Home Medications: Ambulatory Orders Sertraline [Zoloft] 50 mg PO QAM 02/05/14 Apixaban [Eliquis] 5 mg PO QAM 10/14/18 Flecainide [Tambocor] 50 mg PO QAM 10/14/18 Levothyroxine Sodium [Synthroid] 200 mcg PO QAM 10/14/18 Olmesartan Medoxomil 40 mg PO QAM 10/14/18 Fenofibrate Nanocrystallized [Tricor] 145 mg PO QAM 04/08/20 Ibuprofen [Motrin] 600 mg PO Q8HR PRN 12/09/23 methylPREDNISolone Dose Pack [Medrol Dose Pack] 4 mg PO DIRECTED 6 Days #21 tab 09/18/24 Controlled Substance Measures - Controlled Substance Measures Is patient prescribed a controlled substance at discharge?: No
== END ==
LOC: PNWHC3 08:31
PROVIDERS: ATTEND Specialist
DX: M47.26 Other spondylosis with radiculopathy, lumbar region (principal)
CPT/HCPCS: 99211

== ENCOUNTER → 2024-09-21 | Outpatient (CLI) | payer MEDICARE ==
--- NOTE | 2024-09-21 09:07 | XR ---
EXAMINATION TYPE: XR cervical spine limited DATE OF EXAM: 09/21/2024 COMPARISON: NONE CLINICAL INDICATION: Male, 59 years old with history of M54.12RADICULOPATHY, CERVICAL REGION; TECHNIQUE: Four views are submitted. FINDINGS: The odontoid is intact. There are no compression deformities. The prevertebral soft tissue structur es are within normal limits. Straightening of the cervical spine with multilevel degenerative disc d isease most marked at C5-C6. Alignment is seen to the level of C7. Punctate calcifications in the sof t tissues of the neck likely related to carotid artery atherosclerotic disease. IMPRESSION: 1. Degenerative disc disease most marked at C5-C6.. [facility], , 09/21/2024 9:05 AM
== END | disposition home or self-care (01) ==
LOC: RADXRMAIN 07:49
PROVIDERS: ATTEND Specialist
DX: M50.122 Cervical disc disorder at C5-C6 level with radiculopathy (principal)
CPT/HCPCS: 72040

== ENCOUNTER → 2024-10-19 | Outpatient (CLI) | payer MEDICARE, BC ==
--- NOTE | 2024-10-19 09:50 | MR ---
MRI CERVICAL SPINE: CLINICAL HISTORY: Chronic neck pain, stiffness, headaches. Chronic neck pain, stiffness, headaches. R adiculopathy. TECHNIQUE: Multiplanar, multisequence imaging of the cervical spine is performed without IV contrast. COMPARISON: MRI cervical spine February 12, 2022. CT cervical spine April 03, 2022. FINDINGS: Sagittal images of the cervical spine show the craniocervical junction to remain within nor mal limits. The cervical and upper thoracic spinal cord is normal in course, caliber, and signal. St able grade 1 retrolisthesis C5 on C6. The vertebral body heights are normal. Stable [id number] e disc space narrowing and spurring at C5-C6 level. The bone marrow signal intensity is within normal limits. Axial images at C2-C3 level appear within normal limits. Axial images at C3-C4 level shows uncovertebral facet degenerative change bilaterally causing mild-to -moderate right-sided neural foraminal narrowing. No significant change from prior MRI. Axial images at C4-C5 level demonstrates bilateral uncovertebral facet degenerative change but the ne ural foramina are patent. No significant change from prior MRI. Axial images at C5-C6 levels with spondylolisthesis with broad-based posterior disc protrusion efface s the anterior thecal sac and uncovertebral facet degenerative change causing moderate bilateral neur al foraminal narrowing. No significant change from prior MRI. Axial images at C6-C7 and C7-T1 levels remain within normal limits. IMPRESSION: Focal spondylolisthesis and degenerative changes at the C5-C6 level remains present. No s ignificant change from prior MRI. [facility], , 10/19/2024 9:47 AM
== END | disposition home or self-care (01) ==
LOC: RADMRIMAIN 08:01
PROVIDERS: ATTEND Specialist
DX: M47.22 Other spondylosis with radiculopathy, cervical region (principal); M43.12 Spondylolisthesis, cervical region
CPT/HCPCS: 72141